=== PATIENT | female | born 1940 | race Caucasian/White ===

== ENCOUNTER 2019-05-20 04:04 | Inpatient (IN) | payer MEDICARE ==
[2019-05-20] MEDS ORDERED: KETOROLAC 30 MG/ML 1 ML VIAL IVP STA (04:28)
[2019-05-20] MEDS ORDERED: SODIUM CHLORIDE 0.9% 1,000 ML IV STA (04:29)
[2019-05-20] MEDS ORDERED: LORazepam 2 MG/ML INJ IV STA (04:29)
--- NOTE | 2019-05-20 04:39 | ED ---
General Adult HPI - General Chief complaint: Abdominal Pain Stated complaint: Side pain Time Seen by Provider: 05/20/19 04:09 Source: patient, family Mode of arrival: ambulatory Limitations: no limitations - History of Present Illness Initial comments: Dictation was produced using [employer] dictation software. please excuse any grammatical, word or spelling errors. Chief Complaint: 79-year-old female past medical history of breast cancer presents with right-sided flank pain. History of Present Illness: 79-year-old female presents today with right-sided flank pain. Patient states her symptoms are colicky in nature. She's been having symptoms for approximately 48 hours now. She states the pain is severe stabbing and intermittent to her right flank area. She denies any exacerbation with movement. No nausea or vomiting. No diarrhea. Patient denies any vaginal discharge or urinary symptoms. States she looked in her urine earlier today without any significant abnormalities. Denies any history of blood clots. No constitutional symptoms. Denies any numbness tingling or paresthesias to the extremities. The ROS documented in this emergency department record has been reviewed and confirmed by me. Those systems with pertinent positive or negative responses have been documented in the HPI. All other systems are other negative and/or noncontributory. PHYSICAL EXAM: General Impression: Alert and oriented x3, acute distress secondary to pain HEENT: Normocephalic atraumatic, extra-ocular movements intact, pupils equal and reactive to light bilaterally, mucous membranes moist. Cardiovascular: Heart regular rate and rhythm, S1&S2 audible, no murmurs, rubs or gallops Chest: Lungs clear to auscultation bilaterally, no rhonchi, no wheeze, no rales Abdomen: Bowel sounds present, abdomen soft, non-tender, non-distended, no organomegaly Musculoskeletal: Pulses present and equal in all extremities, no peripheral edema Motor: no focal deficits noted Neurological: CN II-XII grossly intact, no focal motor or sensory deficits noted Skin: Intact with no visualized rashes Psych: Normal affect and mood ED course: 79-year-old female with chief complaint of right-sided flank pain. As upon arrival shows heart rate of 1:15, blood pressure 183/85, rest of vital signs within except limits. Patient appears to be in pain at bedside. Patient is a history of kidney stones. Laboratory evaluation obtained. Leukocytosis of 11.4. Metabolic panel shows mild acidosis without anion gap. Lactic acidosis of 2.3. Patient has transaminitis with bilirubinemia 2.4. Urinalysis is positive for [address] imaging of the abdomen and pelvis shows dilated biliary tree. Radiology recommendation was to obtain MRCP or ultrasound. Patient has a history of cholecystectomy 8 years ago.. At this point is unclear what is causing patient's biliary tree dilatation. Given patient's clinical presentat ion and lab derangements we will have patient admitted to the hospital with GI consultation. There is a ultrasound of the gallbladder pending. Discussed these findings with patient was agreeable for admission.. Abdominal examination was performed patient does have positive pain in the right upper quadrant. - Related Data Allergies Allergy/AdvReac Type Severity Reaction Status Date / Time No Known Allergies Allergy Verified 05/20/19 04:14 Review of Systems ROS Statement: Those systems with pertinent positive or pertinent negative responses have been documented in the HPI. ROS Other: All systems not noted in ROS Statement are negative. Past Medical History Past Medical History: Cancer Additional Past Medical History / Comment(s): Breast cancer History of Any Multi-Drug Resistant Organisms: None Reported Past Surgical History: No Surgical Hx Reported Past Psychological History: No Psychological Hx Reported Smoking Status: Never smoker Past Alcohol Use History: Occasional Past Drug Use History: None Reported General Exam Limitations: no limitations Course Vital Signs 05/20/19 04:12 Temperature 99.6 F Pulse Rate 115 H Respiratory 18 Rate Blood Pressure 183/85 O2 Sat by Pulse 95 Oximetry Medical Decision Making - Lab Data Result diagrams: 05/20/19 04:33 05/20/19 04:33 Lab Results 05/20/19 05/20/19 05/20/19 Range/Units 04:33 04:33 04:33 WBC 11.4 H (3.8-10.6) k/uL RBC 4.38 (3.80-5.40) m/uL Hgb 12.9 (11.4-16.0) gm/dL Hct 38.9 (34.0-46.0) % MCV 88.7 (80.0-100.0) fL MCH 29.4 (25.0-35.0) pg MCHC 33.2 (31.0-37.0) g/dL RDW 12.6 (11.5-15.5) % Plt Count 241 (150-450) k/uL Neutrophils % 91 % Lymphocytes % 3 % Monocytes % 4 % Eosinophils % 1 % Basophils % 0 % Neutrophils # 10.5 H (1.3-7.7) k/uL Lymphocytes # 0.4 L (1.0-4.8) k/uL Monocytes # 0.5 (0-1.0) k/uL Eosinophils # 0.1 (0-0.7) k/uL Basophils # 0.0 (0-0.2) k/uL Sodium 138 (137-145) mmol/L Potassium 3.9 (3.5-5.1) mmol/L Chloride 108 H (98-107) mmol/L Carbon Dioxide 20 L (22-30) mmol/L Anion Gap 10 mmol/L BUN 15 (7-17) mg/dL Creatinine 0.81 (0.52-1.04) mg/dL Est GFR (CKD-EPI)AfAm 81 (>60 ml/min/1.73 sqM) Est GFR (CKD-EPI)NonAf 70 (>60 ml/min/1.73 sqM) Glucose 145 H (74-99) mg/dL Plasma Lactic Acid Shree 2.3 H* (0.7-2.0) mmol/L Calcium 8.9 (8.4-10.2) mg/dL Total Bilirubin 2.4 H (0.2-1.3) mg/dL AST 657 H (14-36) U/L ALT 359 H (9-52) U/L Alkaline Phosphatase 229 H (38-126) U/L Total Protein 6.9 (6.3-8.2) g/dL Albumin 3.9 (3.5-5.0) g/dL Lipase 106 (23-300) U/L Urine Color Urine Appearance (Clear) Urine pH (5.0-8.0) Ur Specific Carmichaels (1.001-1.035) Urine Protein (Negative) Urine Glucose (UA) (Negative) Urine Ketones (Negative) Urine Blood (Negative) Urine Nitrite (Negative) Urine Bilirubin (Negative) Urine Urobilinogen (<2.0) mg/dL Ur Leukocyte Esterase (Negative) Urine RBC (0-5) /hpf Urine WBC (0-5) /hpf Ur Squamous Epith Cells (0-4) /hpf Urine Mucus (None) /hpf 05/20/19 Range/Units 04:33 WBC (3.8-10.6) k/uL RBC (3.80-5.40) m/uL Hgb (11.4-16.0) gm/dL Hct (34.0-46.0) % MCV (80.0-100.0) fL MCH (25.0-35.0) pg MCHC (31.0-37.0) g/dL RDW (11.5-15.5) % Plt Count (150-450) k/uL Neutrophils % % Lymphocytes % % Monocytes % % Eosinophils % % Basophils % % Neutrophils # (1.3-7.7) k/uL Lymphocytes # (1.0-4.8) k/uL Monocytes # (0-1.0) k/uL Eosinophils # (0-0.7) k/uL Basophils # (0-0.2) k/uL Sodium (137-145) mmol/L Potassium (3.5-5.1) mmol/L Chloride (98-107) mmol/L Carbon Dioxide (22-30) mmol/L Anion Gap mmol/L BUN (7-17) mg/dL Creatinine (0.52-1.04) mg/dL Est GFR (CKD-EPI)AfAm (>60 ml/min/1.73 sqM) Est GFR (CKD-EPI)NonAf (>60 ml/min/1.73 sqM) Glucose (74-99) mg/dL Plasma Lactic Acid Shree (0.7-2.0) mmol/L Calcium (8.4-10.2) mg/dL Total Bilirubin (0.2-1.3) mg/dL AST (14-36) U/L ALT (9-52) U/L Alkaline Phosphatase (38-126) U/L Total Protein (6.3-8.2) g/dL Albumin (3.5-5.0) g/dL Lipase (23-300) U/L Urine Color Yellow Urine Appearance Cloudy H (Clear) Urine pH 5.5 (5.0-8.0) Ur Specific [place]els 1.019 (1.001-1.035) Urine Protein Trace H (Negative) Urine Glucose (UA) Negative (Negative) Urine Ketones Negative (Negative) Urine Blood Small H (Negative) Urine Nitrite Negative (Negative) Urine Bilirubin Negative (Negative) Urine Urobilinogen 6.0 (<2.0) mg/dL Ur Leukocyte Esterase Large H (Negative) Urine RBC 4 (0-5) /hpf Urine WBC 11 H (0-5) /hpf Ur Squamous Epith Cells 5 H (0-4) /hpf Urine Mucus Rare H (None) /hpf Disposition Clinical Impression: Abdominal pain Disposition: ADMITTED IP TO THIS HOSP Condition: Fair Referrals: Nonstaff,Physician [Primary Care Provider] - 1-2 days Decision Time: 05:31
[2019-05-20 04:43] LABS: Basophils % (A) 0 %; Eosinophils # (A) 0.1 k/uL (0-0.7); Eosinophils % (A) 1 %; HCT 38.9 % (34.0-46.0); HGB 12.9 gm/dL (11.4-16.0); Lymphocytes # (A) 0.4 k/uL (1.0-4.8); Lymphocytes % (A) 3 %; MCH 29.4 pg (25.0-35.0); MCHC 33.2 g/dL (31.0-37.0); MCV 88.7 fL (80.0-100.0); Mean Platelet Volume 6.2; Monocytes # (A) 0.5 k/uL (0-1.0); Monocytes % (A) 4 %; Neutrophils # (A) 10.5 k/uL (1.3-7.7); Neutrophils % (A) 91 %; Platelet Count 241 k/uL (150-450); RBC 4.38 m/uL (3.80-5.40); RDW 12.6 % (11.5-15.5); WBC 11.4 k/uL (3.8-10.6)
[2019-05-20 04:48] LABS: Appearance,Urine Cloudy (Clear); Bilirubin,Urine Negative (Negative); Blood,Urine Small (Negative); Color,Urine Yellow; Glucose,Urine (UA) Negative (Negative); Ketones,Urine Negative (Negative); Leukocyte Esterase,Urine Large (Negative); Mucus,Urine Rare /hpf; Nitrite,Urine Negative (Negative); PH, Urine 5.5 (5.0-8.0); Protein,Urine Trace (Negative); RBC,Urine 4 /hpf (0-5); Specific Gravity,Urine 1.019 (1.001-1.035); Squamous Epithelial Cell,Urine 5 /hpf (0-4)
[2019-05-20 05:01] LABS: Albumin 3.9 g/dL (3.5-5.0); Calcium 8.9 mg/dL (8.4-10.2); Potassium 3.9 mmol/L (3.5-5.1); Total Bilirubin 2.4 mg/dL (0.2-1.3); Total Protein 6.9 g/dL (6.3-8.2)
--- NOTE | 2019-05-20 05:16 | CT ---
EXAMINATION TYPE: CT abdomen pelvis w con DATE OF EXAM: 05/20/2019 COMPARISON: None HISTORY: pain CT DLP: 916.8 mGycm Automated exposure control for dose reduction was used. TECHNIQUE: Helical acquisition of images was performed from the lung bases through the pelvis. CONTRAST: Performed without Oral Contrast and with IV Contrast, patient injected with 80 mL of Isovue 300. FINDINGS: There is some mild atelectasis at the lung bases. There is no pericardial effusion. There is no pleur al effusion. There is dilated biliary tree. Common bile duct measures 1.4 cm. There clips from cholecystectomy. Sp dale is intact. Stomach appears intact. There is small hiatal hernia. There is no evidence of pancrea tic mass. There is no adrenal mass. Kidneys show satisfactory contrast opacification. There is no hydronephrosi s. There is no retroperitoneal adenopathy. Bladder distends smoothly. There is no inguinal hernia. Th ere are numerous small calcified uterine fibroids. There are numerous diverticula in the sigmoid colo n. There is no sign of diverticulitis. There is no free air. There is no mesenteric edema. There is n o ascites. Appendix is not definitely seen. There is no sign of thickened appendix. There is no evide nce of a bowel obstruction. There is mild thoracolumbar levoscoliosis. There is multilevel lumbar spo ndylotic changes. I see no bony destructive process. There is 25% compression deformity of L1 vertebr a there is probably old. IMPRESSION: Dilated biliary tree. Common bile duct dilated. This could relate to distal common duct s tone or stricture. No mass seen. MRCP or ultrasound exam would be helpful for further evaluation if c linically indicated. No renal stone or obstruction. Appendix not seen. No sign of appendicitis. Moderate colonic diverticulosis without evidence of diverticulitis. Fibrotic changes and atelectasis at the lung bases.
[2019-05-20] MEDS ORDERED: ONDANSETRON 4 MG/2 ML VIAL IVP PRN (05:32)
[2019-05-20] MEDS ORDERED: NALOXONE 0.4 MG/ML 1 ML VIAL IV PRN (05:32)
[2019-05-20] MEDS: SODIUM CHLORIDE 0.9% 1,000 ML IV SCH ×2 (05:49→13:18)
--- NOTE | 2019-05-20 07:51 | US ---
EXAMINATION TYPE: US gallbladder DATE OF EXAM: 05/20/2019 COMPARISON: CT CLINICAL HISTORY: dilated gall bladder. abn CT EXAM MEASUREMENTS: Liver Length: 13.9 cm Gallbladder Wall: Surgically absent cm CBD: 1.2 cm Right Kidney: 10.1 x 3.9 x 4.3 cm Pancreas: visualized portions wnl Liver: wnl Gallbladder: Surgically absent CBD: measures 1.2 cm, nothing seen to cause dilation. Right Kidney: No hydronephrosis or masses seen Limited views of the pancreas are normal. The liver is normal in size without biliary dilatation. The gallbladder is been removed. Distal common hepatic duct measures 1.2 cm. Right kidney is normal. IMPRESSION: NORMAL POST CHOLECYSTECTOMY ABDOMEN.
[2019-05-20] MEDS: PANTOPRAZOLE 40 MG/10 ML VIAL IV SCH (08:53)
--- NOTE | 2019-05-20 10:01 | CONS ---
CONSULTATION DATE OF SERVICE: 05/20/2019. REQUESTING PHYSICIAN: Dr. Hyde. REASON FOR CONSULTATION: Dilated CBD and elevated LFTs. HISTORY OF PRESENT ILLNESS: The patient is a 79 -year-old white female who was visiting her daughter for the last week, presented to the hospital complaining of right-sided flank pain that started last night. The pain continued to progressively get worse and she came to the emergency room early this morning for worsening symptoms. The pain is mostly located in the right flank area, occasionally radiates to the lower abdominal area but she denies any epigastric pain or right upper quadrant abdominal pain. She had some nausea but no emesis. She thought she had some chills but no fever. She had an episode that lasted for a week about 2 months ago, but did not seek any medical attention. She is status post gallbladder surgery many years ago. She came to the emergency room and in the ER was noted to have elevated LFTs and bilirubin up to 2.4 with ALT and AST in the range of 657 and 359 respectively. She did have a CT of the abdomen and pelvis done that showed dilated biliary tree with common bile duct dilated. No obvious stones noted. History of prior cholecystectomy. She also had an ultrasound of the right upper quadrant done this morning that was unremarkable other than the CBD that was 1.2 cm in size. The patient this morning is feeling better. She still has some right flank pain. PAST MEDICAL HISTORY: Significant for a breast cancer that was diagnosed about a year ago stage I, status post lumpectomy. PAST SURGICAL HISTORY: Cholecystectomy, lumpectomy. MEDICATIONS: At home medications: . ALLERGIES: No known drug allergies. SOCIAL HISTORY: No smoking. No alcohol use. FAMILY HISTORY: Unremarkable. REVIEW OF SYSTEMS: CARDIOPULMONARY: She denies any chest pain. No shortness of breath. GENITOURINARY: No dysuria or hematuria. MUSCULOSKELETAL: Unremarkable. SKIN unremarkable. ENDOCRINE: Unremarkable. PSYCHIATRIC: Unremarkable. NEUROLOGY unremarkable. ENT/vision unremarkable. CONSTITUTIONAL: No recent weight loss. No fever, chills, night sweats. ENDOCRINE unremarkable. HEMATOLOGY/ONCOLOGY: History of breast cancer diagnosed a year ago. FAMILY HISTORY: Unremarkable. PHYSICAL EXAMINATION: She appears comfortable. No apparent distress. VITAL SIGNS: Stable. Blood pressure is 159/76, pulse is 114, temperature 98. HEENT examination unremarkable. Conjunctivae pink. Sclerae anicteric. Oral cavity no lesions. NECK: No JVD or lymph node enlargement. CHEST: Clear to auscultation. CARDIAC: Heart regular rate and rhythm. ABDOMEN: Soft. There was very minimal tenderness in the epigastric area. Bowel sounds are positive. No organomegaly. EXTREMITIES: No pedal edema. SKIN: No rashes. NEUROLOGIC: Alert and oriented x3. No focal deficits. LABS: WBC 11.4, hemoglobin 12.9, platelets are normal. AST 657, ALT 359, alkaline phosphatase 229, bilirubin is 2.4. Lactic acid was 2.3. IMPRESSION: This is a lady who presents to the hospital with severe right flank pain that started late last night that progressed over the night until this morning and came to the emergency room, was noted to have elevated serum transaminases and bilirubin up to 2.4. She is status post gallbladder surgery approximately 20 years ago. She did have a CT as well as ultrasound of abdomen that showed evidence of dilated CBD, but no obvious stones identified. The clinical picture could be related to a common bile duct stone, but given the presentation of right flank pain, other possibilities need to be considered. RECOMMENDATIONS: 1. We will obtain hepatitis viral profile. 2. MRCP to evaluate this further. 3. Repeat labs in the morning. 4. Based on MRCP results, we will plan accordingly. 5. At this time we will follow the patient closely during her hospital stay. Thank you for this consultation. ESTELA / DULCE MARIA: [id number] /
[2019-05-20] MEDS: LISINOPRIL 20 MG TAB PO SCH (11:05)
--- NOTE | 2019-05-20 11:31 | P.CRDCN ---
History of Present Illness Consult date: 05/20/19 Chief complaint: Abdominal discomfort History of present illness: This is a 79-year-old female patient with a past medical history sign ificant for hypertension as well as history of breast cancer who is currently visiting her daughter, presented to the emergency room complaining of abdominal discomfort. We requested to see the patient for further cardiac evaluation of abnormal troponin. The patient was in her usual state of health until yesterday when she started experiencing discomfort in the abdomen and mainly on the right side in the flank area without any radiation. No associated symptoms of fever or chills or nausea or vomiting. No bleeding. Subsequently the patient was found to have an abnormal liver function tests. Also she was found to have elevated alkaline phosphatase. The computed tomography scan of the abdomen and pelvis did reveal dilated. 3 was dilated common bile duct. The patient subsequently was seen by the GI service and the plan is to proceed with an ERCP. We involved in the care of the patient because of abnormal troponin. The patient denies having any symptoms of chest pain or chest discomfort or shortness of breath and no history of coronary artery disease or congestive heart failure or cardiac arrhythmia. As a matter of fact she never seen by crepe sole scourer in the past. No EKG in the chart at this point and the patient is in process of having EKG. Please note that she was hypertensive and tachycardic probably because of the pain when she presented to the hospital which could be responsible for the abnormal troponin. Past Medical History Past Medical History: Cancer, Eye Disorder, Hypertension Additional Past Medical History / Comment(s): Breast cancer left History of Any Multi-Drug Resistant Organisms: None Reported Past Surgical History: Breast Surgery, Cholecystectomy Additional Past Surgical History / Comment(s): Left breast lumpectomy with lymphnodes, cataract lens implants Past Anesthesia/Blood Transfusion Reactions: No Reported Reaction Past Psychological History: No Psychological Hx Reported Additional Psychological History / Comment(s): Lives alone in [place]. Here visiting dtr (Catalino) and sister (Toro Ro). Retired. Drives. Independent with ADL's, no assistive devices for ambulation. Smoking Status: Never smoker Past Alcohol Use History: Occasional Past Drug Use History: None Reported - Past Family History Mother Additional Family Medical History / Comment(s): Diverticulosis with colostomy Medications and Allergies Home Medications Medication Instructions Recorded Confirmed Type Exemestane [Aromasin] 25 mg PO HS 05/20/19 05/20/19 History Lisinopril [Prinivil] 20 mg PO DAILY 05/20/19 05/20/19 History Allergies Allergy/AdvReac Type Severity Reaction Status Date / Time No Known Allergies Allergy Verified 05/20/19 08:15 Physical Exam Vitals: Vital Signs Temp Pulse Pulse Resp BP BP Pulse Ox 05/20/19 06:49 98.8 F 114 H 20 159/75 95 05/20/19 05:42 98 F 106 H 18 164/80 98 05/20/19 04:12 99.6 F 115 H 18 183/85 95 Intake and Output 05/19/19 05/20/19 05/20/19 22:59 06:59 14:59 Other: # Voids 1 Weight 75.75 kg - Constitutional General appearance: no acute distress - Respiratory Respiratory: bilateral: CTA - Cardiovascular Rhythm: regular Heart sounds: normal: S1, S2 Results 05/20/19 04:33 05/20/19 04:33 Cardiac Enzymes 05/20/19 05/20/19 05/20/19 Range/Units 04:33 06:47 09:08 AST 657 H (14-36) U/L Troponin I 0.027 0.042 H* (0.000-0.034) ng/mL CBC 05/20/19 Range/Units 04:33 WBC 11.4 H (3.8-10.6) k/uL RBC 4.38 (3.80-5.40) m/uL Hgb 12.9 (11.4-16.0) gm/dL Hct 38.9 (34.0-46.0) % Plt Count 241 (150-450) k/uL Comprehensive Metabolic Panel 05/20/19 Range/Units 04:33 Sodium 138 (137-145) mmol/L Potassium 3.9 (3.5-5.1) mmol/L Chloride 108 H (98-107) mmol/L Carbon Dioxide 20 L (22-30) mmol/L BUN 15 (7-17) mg/dL Creatinine 0.81 (0.52-1.04) mg/dL Glucose 145 H (74-99) mg/dL Calcium 8.9 (8.4-10.2) mg/dL AST 657 H (14-36) U/L ALT 359 H (9-52) U/L Alkaline Phosphatase 229 H (38-126) U/L Total Protein 6.9 (6.3-8.2) g/dL Albumin 3.9 (3.5-5.0) g/dL Current Medications Generic Name Dose Route Start Last Admin Trade Name Freq PRN Reason Stop Dose Admin Heparin Sodium (Porcine) 5,000 unit 05/20/19 21:00 Heparin SQ Q12HR NEERU Sodium Chloride 1,000 mls @ 110 mls/hr 05/20/19 05:45 05/20/19 05:49 Saline 0.9% IV 110 mls/hr .Q9H6M NEERU Administration Ceftriaxone Sodium 1 gm/ 50 mls @ 100 mls/hr 05/20/19 10:45 05/20/19 11:05 Sodium Chloride IVPB 100 mls/hr Q24HR NEERU Administration Lisinopril 20 mg 05/20/19 10:45 05/20/19 11:05 Zestril PO 20 mg DAILY NEERU Administration Lorazepam 1 mg 05/20/19 13:15 Ativan IV 05/20/19 13:16 ONCE ONE Metoprolol Tartrate 12.5 mg 05/20/19 21:00 Lopressor PO BID NEERU Naloxone HCl 0.2 mg 05/20/19 05:32 Narcan IV Q2M PRN Opioid Reversal Ondansetron HCl 4 mg 05/20/19 05:32 Zofran IVP Q8HR PRN Nausea And Vomiting Pantoprazole Sodium 40 mg 05/20/19 09:00 05/20/19 08:53 Protonix IV 40 mg DAILY NEERU Administration Intake and Output 05/19/19 05/20/19 05/20/19 22:59 06:59 14:59 Other: # Voids 1 Weight 75.75 kg 05/20/19 04:33 05/20/19 04:33 Assessment and Plan Assessment: Assessment #1 biliary obstruction. The etiology is unknown. GI on the case. #2 elevated liver function test and elevated. Obesity secondary to above #3 abdominal discomfort secondary to above #4 hypertension and tachycardia #5 mildly abnormal troponin Plan #1 follow-up with the serial cardiac enzymes. I will obtain one more set of tr oponin #2 obtain 12 please EKG #3 add small dose of metoprolol to the current medical regimen to achieve a better blood pressure and heart rate #4 obtain an echocardiogram was Doppler #5 follow-up with the patient Thank you for allowing us participate in her care
[2019-05-20] MEDS ORDERED: METOPROLOL TARTRATE 12.5 MG TAB PO SCH (12:30)
[2019-05-20] MEDS ORDERED: ACETAMINOPHEN SUPPOSITORY 650 MG SUPP RECTAL STA (13:14)
[2019-05-20] MEDS ORDERED: LORazepam 2 MG/ML INJ IV ONE (13:15)
--- NOTE | 2019-05-20 14:11 | ECHOF ---
Referral Reason:nstemi MEASUREMENTS -------- HEIGHT: 167.6 cm WEIGHT: 75.7 kg BP: 159/75 RVIDd: 4.2 cm (< 3.3) IVSd: 1.7 cm (0.6 - 1.1) LVIDd: 4.2 cm (3.9 - 5.3) LVPWd: 1.5 cm (0.6 - 1.1) IVSs: 1.8 cm LVIDs: 3.5 cm LVPWs: 1.8 cm LAESV Index (A-L): 31.84 ml/m Ao Diam: 2.7 cm (2.0 - 3.7) AV Cusp: 1.5 cm (1.5 - 2.6) AV maxP.82 mmHg AV meanP.40 mmHg RAP: 5.00 mmHg RVSP: 32.29 mmHg FINDINGS -------- Resting tachycardia (HR>100bpm). This was a technically adequate study. This was a technically difficult study with suboptimal views . Pt. not compliant. The left ventricular size is normal. There is moderate concentric left ventricular hypertrophy. I t is difficult to coment on the EF. The endocardium was not well seen. The right ventricle is severely enlarged. LA is severely dilated >40 ml/m2 The right atrial size is normal. Interatrial and interventricular septum intact. The aortic valve was not well visualized. There is no evidence of aortic regurgitation. There is no evidence of aortic stenosis. The mitral valve was not well visualized. Mild mitral regurgitation is present. The tricuspid valve was not well visualized. Mild tricuspid regurgitation present. There is no ev idence of pulmonary hypertension. The right ventricular systolic pressure, as measured by Doppler, is 32.29mmHg. The pulmonic valve was not well visualized. The aortic root size is normal. IVC Not well visulized. There is no pericardial effusion. CONCLUSIONS -------- 1. Resting tachycardia (HR>100bpm). 2. This was a technically adequate study. 3. This was a technically difficult study with suboptimal views. 4. Pt. not compliant. 5. The left ventricular size is normal. 6. There is moderate concentric left ventricular hypertrophy. 7. It is difficult to coment on the EF. The endocardium was not well seen. 8. The right ventricle is severely enlarged. 9. LA is severely dilated >40 ml/m2 10. The right atrial size is normal. 11. Interatrial and interventricular septum intact. 12. The aortic valve was not well visualized. 13. There is no evidence of aortic regurgitation. 14. There is no evidence of aortic stenosis. 15. The mitral valve was not well visualized. 16. Mild mitral regurgitation is present. 17. The tricuspid valve was not well visualized. 18. Mild tricuspid regurgitation present. 19. There is no evidence of pulmonary hypertension. 20. The right ventricular systolic pressure, as measured by Doppler, is 32.29mmHg. 21. The pulmonic valve was not well visualized. 22. The aortic root size is normal. 23. IVC Not well visulized. 24. There is no pericardial effusion. TWIST MAKER: Sona Cantrell RDCS
[2019-05-20] MEDS ORDERED: SODIUM CHLORIDE 0.9% 1,000 ML IV ONE (14:40)
--- NOTE | 2019-05-20 14:43 | MR ---
MRI ABDOMEN WITHOUT CONTRAST, MRCP CLINICAL INDICATION: Elevated liver function enzymes, dilated common bile duct, concerning for commo n bile duct stone. TECHNIQUE: Multi planar, multi sequence imaging was performed. 3-D mbct-up-[id number] imaging was utili zed in order to study the biliary system. Maximum intensity projection images were reconstructed fro m the original data. No Gadolinium given. COMPARISON: Gallbladder ultrasound and CT abdomen/pelvis 05/20/2019. FINDINGS: The study is limited by patient motion. MRCP: Mild dilatation of the intrahepatic bile ducts. The gallbladder is not definitively visualized, likely due to surgical absence. The hepatic and common bile duct are dilated measuring approximately 1.2 and 1.5 cm, respectively. There is fluid in the da hepatis. Small foci of low signal are depe ndently layering within the hepatic and common bile duct. Signal void distally noted on axial T2-weig hted sequences may be due to flow related artifact. The hgzf-yv-[id number] imaging and 3-D reconstruction s are essentially nondiagnostic due to motion. Pancreatic duct is prominent. Abdomen: No hepatosplenomegaly. Limited adrenal evaluation due to motion. Nonspecific perinephric flu id, minimal. 4 mm high T2 signal intensity lesion in the hepatic tail parenchyma. Partially visualize d colonic diverticula. Degenerative changes of the lumbar spine present on chief safety officer imaging with mild co mpression deformity of L1, age indeterminant. IMPRESSIONS: Significantly motion limited study. Intrahepatic and extrahepatic biliary ductal dilatation with smal l foci of low signal in the hepatic and common bile ducts dependently which may represent biliary pennie t stones, sludge, or artifact (partial volume averaging). Evaluation for the presence of structure is limited due to motion.
[2019-05-20] MEDS: METOPROLOL TARTRATE 50 MG TAB PO SCH (20:39)
[2019-05-20] MEDS: HEPARIN SODIUM,PORCINE 5,000 UNIT/ML 1 ML VIAL SQ SCH (20:39)
[2019-05-20] MEDS ORDERED: metroNIDAZOLE-NS PMX 500 MG in SALINE 1 100ML.BAG IVPB SCH (22:18)
--- NOTE | 2019-05-20 22:40 | P.HPIM ---
History of Present Illness H&P Date: 05/20/19 Chief Complaint: Right flank pain Patient is 79-year-old female with a known history of hypertension, history of left breast cancer status post surgery and currently on Aromasin and previous history of cholecystectomy came to ER with complaints of right flank pain started since last night. Pain is mainly in the right flank no radiation. No aggravating or relieving factors. Associated with some nausea. No episodes of vomiting. Patient did have chills at home. No fever noted when she came to the hospital. Otherwise denied any complains of chest pain or shortness of breath. Patient is visiting her daughter and has been in [place] for the past 1 week. Patient was found to have elevated liver enzymes and bilirubin level II.4 on admission. Patient was tachycardic. CT of the abdomen pelvis showed dilated biliary tree. Common bile dilated. This could relate to distal common bile stone or stricture. MRCP WAS RECOMMENDED. ULTRASOUND OF THE ABDOMEN SHOWED normal post cholecystectomy abdomen. EKG showed sinus tachycardia on admission. Patient was also found to have elevated troponin level 0.027 and 0.042. Denied any prior history of coronary artery disease. Lactic acid level was 2.4. Cardiology and gastroenterology was consulted. Patient was tachycardic and systolic blood pressures went up to 203 MM Hg today afternoon. Review of Systems Constitutional: Patient denies any fever or chills . No generalized weakness or weight loss. Abdomen: Patient denied nausea vomiting . Patient does have right flank pain and denied upper abdominal pain. Cardiovascular: Patient denies any chest pain or short of breath no palpitations. Respiratory: patient denied any cough is from production. No shortness of br eath Neurologic: Patient denied any numbness or tingling headache. Musculoskeletal: Patient denies any complaints of joint swelling or deformity. Skin: Negative Psychiatric: Negative Endocrine: No heat or cold intolerance. No recent weight gain. Genitourinary: No dysuria or hematuria. All other 14 point ROS negative except the above Past Medical History Past Medical History: Cancer, Eye Disorder, Hypertension Additional Past Medical History / Comment(s): Breast cancer left History of Any Multi-Drug Resistant Organisms: None Reported Past Surgical History: Breast Surgery, Cholecystectomy Additional Past Surgical History / Comment(s): Left breast lumpectomy with lymphnodes, cataract lens implants Past Anesthesia/Blood Transfusion Reactions: No Reported Reaction Past Psychological History: No Psychological Hx Reported Additional Psychological History / Comment(s): Lives alone in [place]. Here visiting dtr (Catalino) and sister (Toro Ro). Retired. Drives. Independent with ADL's, no assistive devices for ambulation. Smoking Status: Never smoker Past Alcohol Use History: Occasional Past Drug Use History: None Reported - Past Family History Mother Additional Family Medical History / Comment(s): Diverticulosis with colostomy Medications and Allergies Home Medications Medication Instructions Recorded Confirmed Type Exemestane [Aromasin] 25 mg PO HS 05/20/19 05/20/19 History Lisinopril [Prinivil] 20 mg PO DAILY 05/20/19 05/20/19 History Allergies Allergy/AdvReac Type Severity Reaction Status Date / Time No Known Allergies Allergy Verified 05/20/19 08:15 Physical Exam Vitals: Vital Signs Temp Pulse Pulse Resp BP BP Pulse Ox 05/20/19 06:49 98.8 F 114 H 20 159/75 95 05/20/19 05:42 98 F 106 H 18 164/80 98 05/20/19 04:12 99.6 F 115 H 18 183/85 95 Intake and Output 05/19/19 05/20/19 05/20/19 22:59 06:59 14:59 Other: Weight 75.75 kg PHYSICAL EXAMINATION: Patient is lying in the bed comfortably, no acute distress, awake alert and oriented.. HEENT: Normocephalic. Neck is supple. Pupils reactive. Nostrils clear. Oral cavity is moist. Ears reveal no drainage. Neck reveals no JVD, carotid bruits, or thyromegaly. CHEST EXAMINATION: Trachea is central. Symmetrical expansion. Bibasilar diminished air entry. Lung rios clear to auscultation and percussion. CARDIAC: Normal S1, S2 with no gallops. No murmurs ABDOMEN: Soft. Right flank tenderness. Nontender right upper quadrant. No guarding no rigidity. Bowel sounds normal. No organomegaly. No abdominal bruits. Extremities: reveal no edema. No clubbing or cyanosis Neurologically awake, alert, oriented x3 with well-coordinated movements. No focal deficits noted Skin: No rash or skin lesions. Psychiatric: Coperative. Nonsuicidal Musculoskeletal: No joint swelling or deformity. Normal range of motion. Results CBC & Chem 7: 05/20/19 04:33 05/20/19 04:33 Labs: Abnormal Lab Results - Last 24 Hours (Table) 05/20/19 05/20/19 05/20/19 Range/Units 04:33 04:33 04:33 WBC 11.4 H (3.8-10.6) k/uL Neutrophils # 10.5 H (1.3-7.7) k/uL Lymphocytes # 0.4 L (1.0-4.8) k/uL Chloride 108 H (98-107) mmol/L Carbon Dioxide 20 L (22-30) mmol/L Glucose 145 H (74-99) mg/dL Plasma Lactic Acid Shree 2.3 H* (0.7-2.0) mmol/L Total Bilirubin 2.4 H (0.2-1.3) mg/dL AST 657 H (14-36) U/L ALT 359 H (9-52) U/L Alkaline Phosphatase 229 H (38-126) U/L Troponin I (0.000-0.034) ng/mL Urine Appearance (Clear) Urine Protein (Negative) Urine Blood (Negative) Ur Leukocyte Esterase (Negative) Urine WBC (0-5) /hpf Ur Squamous Epith Cells (0-4) /hpf Urine Mucus (None) /hpf 05/20/19 05/20/19 05/20/19 Range/Units 04:33 09:08 09:08 WBC (3.8-10.6) k/uL Neutrophils # (1.3-7.7) k/uL Lymphocytes # (1.0-4.8) k/uL Chloride (98-107) mmol/L Carbon Dioxide (22-30) mmol/L Glucose (74-99) mg/dL Plasma Lactic Acid Shree 2.4 H* (0.7-2.0) mmol/L Total Bilirubin (0.2-1.3) mg/dL AST (14-36) U/L ALT (9-52) U/L Alkaline Phosphatase (38-126) U/L Troponin I 0.042 H* (0.000-0.034) ng/mL Urine Appearance Cloudy H (Clear) Urine Protein Trace H (Negative) Urine Blood Small H (Negative) Ur Leukocyte Esterase Large H (Negative) Urine WBC 11 H (0-5) /hpf Ur Squamous Epith Cells 5 H (0-4) /hpf Urine Mucus Rare H (None) /hpf Thrombosis Risk Factor Assmnt - DVT/VTE Prophylaxis DVT/VTE Prophylaxis: Pharmacologic Prophylaxis ordered - Choose All That Apply Each Risk Factor Represents 3 Points: Age 75 years or older Thrombosis Risk Factor Assessment Total Risk Factor Score: 3 Thrombosis Risk Factor Assessment Level: Moderate Risk Assessment and Plan Assessment: Right flank pain. Patient was admitted to hospital right flank pain along with elevated liver enzymes and slightly elevated bilirubin level with biliary ductal dilatation in the CT. choledocholithiasis with possible cholangitis cannot be excluded. Sepsis secondary to above Lactic acidosis Possible UTI with abnormal urine sample. Follow-up urine culture report Elevated troponin level. Likely due to demand mismatch vs NSTEMI Elevated liver enzymes History of breast cancer status post left lumpectomy with lymph nodes. Currently on Aromasin. Hypertensive urgency History of cholecystectomy DVT prophylaxis with heparin subcu. Plan: Patient will be started on antibiotics in the form of ceftriaxone and Flagyl. Continue with IV hydration and follow-up lactic acid level. Follow-up urine culture and blood culture reports. Continue pain management. MRCP was ordered. Patient was seen by gastroenterology. Cardiology was consulted due to elevated troponin level. No prior history of CAD. Follow up closely and further recommendations based on the clinical course. Prognosis is guarded this time. Time with Patient: Greater than 30
[2019-05-20] MEDS: metroNIDAZOLE-NS PMX 500 MG in SALINE 1 100ML.BAG IVPB SCH (22:51)
[2019-05-20 23:05] LABS: INR 1.6 (<1.2); Partial Thromboplastin Time 29.7 sec (22.0-30.0); Prothrombin Time 16.2 sec (9.0-12.0)
[2019-05-21 06:17] LABS: Basophils # (A) 0.1 k/uL (0-0.2); Basophils % (A) 0 %; Eosinophils # (A) 0.1 k/uL (0-0.7); Eosinophils % (A) 1 %; HCT 34.9 % (34.0-46.0); HGB 10.4 gm/dL (11.4-16.0); Lymphocytes % (A) 7 %; MCH 27.8 pg (25.0-35.0); MCHC 29.9 g/dL (31.0-37.0); Mean Platelet Volume 7.5; Monocytes # (A) 0.8 k/uL (0-1.0); Monocytes % (A) 5 %; Neutrophils # (A) 12.8 k/uL (1.3-7.7); Neutrophils % (A) 86 %; Platelet Count 196 k/uL (150-450); RBC 3.75 m/uL (3.80-5.40); RDW 13.3 % (11.5-15.5); WBC 14.8 k/uL (3.8-10.6)
[2019-05-21] MEDS: metroNIDAZOLE-NS PMX 500 MG in SALINE 1 100ML.BAG IVPB SCH ×3 (06:21→21:08)
[2019-05-21] MEDS: SODIUM CHLORIDE 0.9% 1,000 ML IV SCH ×3 (06:22→21:09)
[2019-05-21 06:33] LABS: Albumin 2.7 g/dL (3.5-5.0); Calcium 7.7 mg/dL (8.4-10.2); Potassium 3.4 mmol/L (3.5-5.1); Total Bilirubin 4.1 mg/dL (0.2-1.3); Total Protein 5.4 g/dL (6.3-8.2)
--- NOTE | 2019-05-21 06:41 | XR ---
EXAMINATION TYPE: XR chest 1V DATE OF EXAM: 05/21/2019 HISTORY: fever. REFERENCE: None. FINDINGS: The heart is enlarged. There is vascular congestion and subtle interstitial change. I could not exclude tiny bilateral effusions. IMPRESSION: SUBTLE CHANGES OF CONGESTIVE HEART FAILURE
[2019-05-21] MEDS: HEPARIN SODIUM,PORCINE 5,000 UNIT/ML 1 ML VIAL SQ SCH ×2 (08:13→21:08)
[2019-05-21] MEDS: LISINOPRIL 20 MG TAB PO SCH (08:13)
[2019-05-21] MEDS: PANTOPRAZOLE 40 MG/10 ML VIAL IV SCH (08:13)
[2019-05-21] MEDS: METOPROLOL TARTRATE 50 MG TAB PO SCH ×2 (08:13→21:08)
--- NOTE | 2019-05-21 10:19 | P.PN ---
Subjective Progress Note Date: 05/21/19 Principal diagnosis: Non-ST deviation myocardial infarction This is a 79-year-old female patient with a past medical history significant for hypertension as well as history of breast cancer who is currently visiting her daughter, presented to the emergency room complaining of abdominal discomfort. We requested to see the patient for further cardiac evaluation of abnormal troponin. The patient was in her usual state of health until yesterday when she started experiencing discomfort in the abdomen and mainly on the right side in the flank area without any radiation. No associated symptoms of fever or chills or nausea or vomiting. No bleeding. Subsequently the patient was found to have an abnormal liver function tests. Also she was found to have elevated alkaline phosphatase. The computed tomography scan of the abdomen and pelvis did reveal dilated. 3 was dilated common bile duct. The patient subsequently was seen by the GI service and the plan is to proceed with an ERCP. We involved in the care of the patient because of abnormal troponin. Initial troponin came in to be below 1 but the subsequent troponin came in to be above 1. The EKG revealed T wave inversion in the chest leads. At that point the patient was transferred from [facility] to the telemetry floor at [address] [place] [address]. She underwent an echocardiogram which was technically very difficult and I could not comment on the ejection fraction. On follow-up with the patient today, 05/21/2019, the patient stated that she is not having any chest pain or chest discomfort but she feels tired. I did start the patient on metoprolol. I am going to check with the GI service if we can start the patient on aspirin as well as heparin IV. The patient do need to have a heart catheterization to rule out severe coronary artery disease behind her abnormal troponin. Objective - Vital Signs Vital signs: Vital Signs Temp 99.0 F 05/21/19 08:00 Pulse 85 05/21/19 08:00 Resp 16 05/21/19 08:00 BP 138/76 05/21/19 08:00 Pulse Ox 93 L 05/21/19 08:00 Intake & Output 05/20/19 05/21/19 05/21/19 18:59 06:59 18:59 Intake Total 0 Balance 0 Weight 79.8 kg Intake: Oral 0 Other: Voiding Method Toilet # Voids 1 1 # Bowel Movements 2 - Constitutional General appearance: Present: no acute distress - Respiratory Respiratory: bilateral: CTA - Cardiovascular Rhythm: regular Heart sounds: normal: S1, S2 - Labs CBC & Chem 7: 05/21/19 06:01 05/21/19 06:01 Labs: Abnormal Lab Results - Last 24 Hours (Table) 05/20/19 05/20/19 05/20/19 Range/Units 09:08 13:24 15:57 WBC (3.8-10.6) k/uL RBC (3.80-5.40) m/uL Hgb (11.4-16.0) gm/dL MCHC (31.0-37.0) g/dL Neutrophils # (1.3-7.7) k/uL PT (9.0-12.0) sec INR (<1.2) Potassium (3.5-5.1) mmol/L Chloride (98-107) mmol/L Carbon Dioxide (22-30) mmol/L BUN (7-17) mg/dL Plasma Lactic Acid Shree 2.9 H* (0.7-2.0) mmol/L Calcium (8.4-10.2) mg/dL Total Bilirubin (0.2-1.3) mg/dL AST (14-36) U/L ALT (9-52) U/L Alkaline Phosphatase (38-126) U/L Troponin I 0.042 H* 0.892 H* (0.000-0.034) ng/mL Total Protein (6.3-8.2) g/dL Albumin (3.5-5.0) g/dL 05/20/19 05/20/19 05/21/19 Range/Units 20:32 22:25 06:01 WBC 14.8 H (3.8-10.6) k/uL RBC 3.75 L (3.80-5.40) m/uL Hgb 10.4 L (11.4-16.0) gm/dL MCHC 29.9 L (31.0-37.0) g/dL Neutrophils # 12.8 H (1.3-7.7) k/uL PT 16.2 H (9.0-12.0) sec INR 1.6 H (<1.2) Potassium (3.5-5.1) mmol/L Chloride (98-107) mmol/L Carbon Dioxide (22-30) mmol/L BUN (7-17) mg/dL Plasma Lactic Acid Shree (0.7-2.0) mmol/L Calcium (8.4-10.2) mg/dL Total Bilirubin (0.2-1.3) mg/dL AST (14-36) U/L ALT (9-52) U/L Alkaline Phosphatase (38-126) U/L Troponin I 1.050 H* (0.000-0.034) ng/mL Total Protein (6.3-8.2) g/dL Albumin (3.5-5.0) g/dL 05/21/19 Range/Units 06:01 WBC (3.8-10.6) k/uL RBC (3.80-5.40) m/uL Hgb (11.4-16.0) gm/dL MCHC (31.0-37.0) g/dL Neutrophils # (1.3-7.7) k/uL PT (9.0-12.0) sec INR (<1.2) Potassium 3.4 L (3.5-5.1) mmol/L Chloride 113 H (98-107) mmol/L Carbon Dioxide 18 L (22-30) mmol/L BUN 19 H (7-17) mg/dL Plasma Lactic Acid Shree (0.7-2.0) mmol/L Calcium 7.7 L (8.4-10.2) mg/dL Total Bilirubin 4.1 H (0.2-1.3) mg/dL AST 131 H (14-36) U/L ALT 181 H (9-52) U/L Alkaline Phosphatase 141 H (38-126) U/L Troponin I (0.000-0.034) ng/mL Total Protein 5.4 L (6.3-8.2) g/dL Albumin 2.7 L (3.5-5.0) g/dL Microbiology - Last 24 Hours (Table) 05/20/19 04:33 Urine Culture - Preliminary Urine,Clean Catch Assessment and Plan Assessment: Assessment #1 biliary obstruction. The etiology is unknown. GI on the case. #2 elevated liver function test and elevated. Obesity secondary to above #3 abdominal discomfort secondary to above #4 hypertension and tachycardia #5 non-ST elevation NC Plan #1 start the patient on aspirin as well as heparin if it's okay from the GI standpoint overview #2 the patient need to undergo a coronary angiogram #3 continue metoprolol #4 follow-up with the patient
[2019-05-21] MEDS ORDERED: Potassium Replacement Protocol 1 EACH MISC MISCELLANE PRN (10:47)
--- NOTE | 2019-05-21 14:49 | PN ---
PROGRESS NOTE DATE OF SERVICE: 05/21/2019 REQUESTING PHYSICIAN: Dr. Rivera. The patient is a 79-year-old pleasant white female who presents to the hospital with severe right flank pain radiating to the right upper quadrant area for the last 2 days duration. At the time of admission to the hospital was noted to have elevated LFTs with bilirubin of 2.1 and ALT and AST in the range of 657 and 359 respectively. Initial CAT scan and ultrasound showed dilated common bile duct. She subsequently underwent an ERCP yesterday which revealed dilated biliary system with intra and extrahepatic biliary ductal dilation with small foci of low signal in the hepatic and common bile duct which may represent biliary duct stones. In the meantime, patient is doing much better. Her symptoms are resolved. She did have troponins that were noted to be elevated and hence Cardiology was consulted yesterday. Dr. Mcnamara evaluated the patient and the plan is to proceed with cardiac catheterization today or tomorrow. The patient is asymptomatic and chest pain- free. PHYSICAL EXAMINATION: She appears comfortable, no apparent distress. Vital signs are stable. Blood pressure is 138/76, pulse rate 85, temperature 99. HEENT examination unremarkable. Conjunctivae pink, sclerae anicteric. Oral cavity, no lesions. NECK: No JVD or lymph node enlargement. CHEST: Clear to auscultation. HEART: Regular rate and rhythm. ABDOMEN: Soft. It was nontender and nondistended. Bowel sounds are positive. No organomegaly. EXTREMITIES: No pedal edema. SKIN: No rashes. NEUROLOGIC: Alert and oriented x3. No focal deficits. LABS: From today, T bilirubin increased to 4.1, AST is 131, ALT is 181, alkaline phosphatase 141. WBC 14.8, hemoglobin 10.4, and platelets are 196. The INR is 1.6. IMPRESSION: 1. Right flank pain, right upper quadrant abdominal pain associated with elevated LFTs and MRCP showed evidence of intra and extrahepatic biliary ductal dilation with 2 small foci in the distal common bile duct suspicious for common bile duct stones. The patient also has leukocytosis for which she was started on broad-spectrum antibiotics for possible ascending cholangitis. The patient clinically has significant improvement, however, bilirubin continues to get worse. 2. Elevated troponin level. Cardiology following the patient closely. The plan is to proceed with cardiac catheterization possibly tomorrow. RECOMMENDATIONS: 1. Continue with broad-spectrum antibiotics. 2. Clear liquid diet. 3. We will proceed with an ERCP tomorrow. I discussed with the patient risks, benefits and complications of the procedure. 4. I had a lengthy discussion with Dr. Mcnamara from Cardiology. At this time the plan is to proceed with an ERCP tomorrow and then . Anders plans on proceeding with cardiac catheterization to evaluate for coronary artery disease. 5. At this time, recommended to hold off on anticoagulation because of underlying mild coagulopathy. Thank you for this consultation. MMODL / IJN: [id number] /
--- NOTE | 2019-05-21 22:44 | P.PN ---
Subjective Progress Note Date: 05/21/19 Principal diagnosis: Biliary ductal dilation and hyperbilirubinemia Patient is 79-year-old female with a known history of hypertension, history of left breast cancer status post surgery and currently on Aromasin and previous history of cholecystectomy came to ER with complaints of right flank pain started since last night. Pain is mainly in the right flank no radiation. No a ggravating or relieving factors. Associated with some nausea. No episodes of vomiting. Patient did have chills at home. No fever noted when she came to the hospital. Otherwise denied any complains of chest pain or shortness of breath. Patient is visiting her daughter and has been in [place] for the past 1 week. Patient was found to have elevated liver enzymes and bilirubin level II.4 on admission. Patient was tachycardic. CT of the abdomen pelvis showed dilated biliary tree. Common bile dilated. This could relate to distal common bile stone or stricture. MRCP WAS RECOMMENDED. ULTRASOUND OF THE ABDOMEN SHOWED normal post cholecystectomy abdomen. EKG showed sinus tachycardia on admission. Patient was also found to have elevated troponin level 0.027 and 0.042. Denied any prior history of coronary artery disease. Lactic acid level was 2.4. Cardiology and gastroenterology was consulted. Patient was tachycardic and systolic blood pressures went up to 203 MM Hg today afternoon. 05/21/2019 Patient is currently lying in the bed comfortably. Denied any complaints of right flank pain today., Except one episode lasting about a minute this morning. Otherwise patient's bilirubin went up to 4. Levaquin is trending down. WBC 14.8. Patient was started on antibiotics in the form of ceftriaxone and Flagyl for possible cholangitis. Patient was febrile last night. Currently patient is afebrile. No complains of dysuria or hematuria. Troponin went up to 1.050. Cardiology recommends cardiac catheterization. Patient denied any complaints of chest pain or shortness of breath now. Gastroenterology is planning for ERCP likely tomorrow. Follow-up CBC and CMP and PT/INR tomorrow. Discussed with her daughter at bedside. Current medications reviewed. Active Medications Heparin Sodium (Porcine) (Heparin) 5,000 unit SQ Q12HR [facility]ERU Last Admin: 05/21/19 21:08 Dose: 5,000 unit Documented by: Sodium Chloride (Saline 0.9%) 1,000 mls @ 100 mls/hr IV .Q10H NEERU Last Admin: 05/21/19 21:09 Dose: 100 mls/hr Documented by: Ceftriaxone Sodium 1 gm/ (Sodium Chloride) 50 mls @ 100 mls/hr IVPB Q24HR [facility] Last Admin: 05/21/19 08:15 Dose: 100 mls/hr Documented by: Metronidazole 500 mg/ IV (Solution) 100 mls @ 100 mls/hr IVPB Q8H [facility] Last Admin: 05/21/19 21:08 Dose: 100 mls/hr Documented by: Indomethacin (Indocin) 100 mg RECTAL ONCE ONE Stop: 05/22/19 11:01 Lisinopril (Zestril) 20 mg PO DAILY [facility] Last Admin: 05/21/19 08:13 Dose: 20 mg Documented by: Metoprolol Tartrate (Lopressor) 50 mg PO BID [facility] Last Admin: 05/21/19 21:08 Dose: 50 mg Documented by: Miscellaneous Information (Potassium Per Protocol) 1 each MISCELLANE DAILY PRN; Protocol PRN Reason: Per Protocol Naloxone HCl (Narcan) 0.2 mg IV Q2M PRN PRN Reason: Opioid Reversal Ondansetron HCl (Zofran) 4 mg IVP Q8HR PRN PRN Reason: Nausea And Vomiting Pantoprazole Sodium (Protonix) 40 mg IV DAILY [facility] Last Admin: 05/21/19 08:13 Dose: 40 mg Documented by: Objective - Vital Signs Vital signs: Vital Signs Temp 98.5 F 05/21/19 15:01 Pulse 86 05/21/19 15:01 Resp 16 05/21/19 15:01 BP 175/86 05/21/19 15:01 Pulse Ox 94 L 05/21/19 15:01 Intake & Output 05/21/19 05/21/19 05/22/19 06:59 18:59 06:59 Intake Total 480 Balance 480 Weight 79.8 kg Intake: Oral 480 Other: Voiding Method Toilet # Voids 1 2 - Exam PHYSICAL EXAMINATION: Patient is lying in the bed comfortably, no acute distress, awake alert and oriented.. HEENT: Normocephalic. Neck is supple. Pupils reactive. Nostrils clear. Oral cavity is moist. Ears reveal no drainage. Neck reveals no JVD, carotid bruits, or thyromegaly. CHEST EXAMINATION: Trachea is central. Symmetrical expansion. Lung rios clear to auscultation and percussion. CARDIAC: Normal S1, S2 with no gallops. No murmurs ABDOMEN: Soft. Bowel sounds normal. No organomegaly. No abdominal bruits. Extremities: reveal no edema. No clubbing or cyanosis Neurologically awake, alert, oriented x3 with well-coordinated movements. No focal deficits noted Skin: No rash or skin lesions. Psychiatric: Coperative. Nonsuicidal Musculoskeletal: No joint swelling or deformity. Normal range of motion. - Labs CBC & Chem 7: 05/21/19 06:01 05/21/19 06:01 Labs: Abnormal Lab Results - Last 24 Hours (Table) 05/20/19 05/21/19 05/21/19 Range/Units 22:25 06:01 06:01 WBC 14.8 H (3.8-10.6) k/uL RBC 3.75 L (3.80-5.40) m/uL Hgb 10.4 L (11.4-16.0) gm/dL MCHC 29.9 L (31.0-37.0) g/dL Neutrophils # 12.8 H (1.3-7.7) k/uL PT 16.2 H (9.0-12.0) sec INR 1.6 H (<1.2) Potassium 3.4 L (3.5-5.1) mmol/L Chloride 113 H (98-107) mmol/L Carbon Dioxide 18 L (22-30) mmol/L BUN 19 H (7-17) mg/dL Calcium 7.7 L (8.4-10.2) mg/dL Total Bilirubin 4.1 H (0.2-1.3) mg/dL AST 131 H (14-36) U/L ALT 181 H (9-52) U/L Alkaline Phosphatase 141 H (38-126) U/L Troponin I (0.000-0.034) ng/mL Total Protein 5.4 L (6.3-8.2) g/dL Albumin 2.7 L (3.5-5.0) g/dL 05/21/19 Range/Units 06:01 WBC (3.8-10.6) k/uL RBC (3.80-5.40) m/uL Hgb (11.4-16.0) gm/dL MCHC (31.0-37.0) g/dL Neutrophils # (1.3-7.7) k/uL PT (9.0-12.0) sec INR (<1.2) Potassium (3.5-5.1) mmol/L Chloride (98-107) mmol/L Carbon Dioxide (22-30) mmol/L BUN (7-17) mg/dL Calcium (8.4-10.2) mg/dL Total Bilirubin (0.2-1.3) mg/dL AST (14-36) U/L ALT (9-52) U/L Alkaline Phosphatase (38-126) U/L Troponin I 0.817 H* (0.000-0.034) ng/mL Total Protein (6.3-8.2) g/dL Albumin (3.5-5.0) g/dL Microbiology - Last 24 Hours (Table) 05/20/19 13:24 Blood Culture - Preliminary Blood No Growth after 24 hours Assessment and Plan Assessment: Right flank pain. Patient was admitted to hospital right flank pain along with elevated liver enzymes and slightly elevated bilirubin level with biliary ductal dilatation in the CT. choledocholithiasis with possible cholangitis cannot be excluded. Sepsis secondary to above Hyperbilirubinemia Lactic acidosis. Improved now Possible UTI with abnormal urine sample. Low suspicion for infection. Follow- up urine culture report Elevated troponin level. Possible NSTEMI Elevated liver enzymes History of breast cancer status post left lumpectomy with lymph nodes. Currently on Aromasin. Hypertensive urgency History of cholecystectomy DVT prophylaxis with heparin subcu. Plan: Patient will be started on antibiotics in the form of ceftriaxone and Flagyl. Continue with IV hydration and follow-up lactic acid level. Follow-up urine culture and blood culture reports. Continue pain management. MRCP was done.. Patient was seen by gastroenterology. Cardiology recommends catheterization. No prior history of C AD. Follow up closely and further recommendations based on the clinical course. Prognosis is guarded this time. Time with Patient: Greater than 30
[2019-05-22] MEDS: hydrALAZINE HCL 50 MG TAB PO PRN ×2 (00:08→10:02)
[2019-05-22] MEDS: MELATONIN 3 MG TABLET PO PRN ×2 (00:08→23:57)
[2019-05-22] MEDS: metroNIDAZOLE-NS PMX 500 MG in SALINE 1 100ML.BAG IVPB SCH ×3 (06:03→21:50)
[2019-05-22 06:25] LABS: Basophils % (A) 0 %; Eosinophils # (A) 0.1 k/uL (0-0.7); Eosinophils % (A) 1 %; HCT 34.3 % (34.0-46.0); HGB 10.8 gm/dL (11.4-16.0); Lymphocytes # (A) 1.3 k/uL (1.0-4.8); Lymphocytes % (A) 11 %; MCH 28.9 pg (25.0-35.0); MCHC 31.5 g/dL (31.0-37.0); MCV 91.7 fL (80.0-100.0); Mean Platelet Volume 7.6; Monocytes # (A) 0.6 k/uL (0-1.0); Monocytes % (A) 5 %; Neutrophils # (A) 9.5 k/uL (1.3-7.7); Neutrophils % (A) 81 %; Platelet Count 210 k/uL (150-450); RBC 3.75 m/uL (3.80-5.40); RDW 13.5 % (11.5-15.5); WBC 11.7 k/uL (3.8-10.6)
[2019-05-22 06:42] LABS: INR 1.2 (<1.2); Prothrombin Time 12.6 sec (9.0-12.0)
[2019-05-22 06:47] LABS: Albumin 3.1 g/dL (3.5-5.0); Calcium 8.4 mg/dL (8.4-10.2); Potassium 3.2 mmol/L (3.5-5.1); Total Bilirubin 1.5 mg/dL (0.2-1.3); Total Protein 5.8 g/dL (6.3-8.2)
[2019-05-22] MEDS: METOPROLOL TARTRATE 50 MG TAB PO SCH (08:09)
[2019-05-22] MEDS: PANTOPRAZOLE 40 MG/10 ML VIAL IV SCH ×2 (08:09→08:13)
[2019-05-22] MEDS: LISINOPRIL 20 MG TAB PO SCH (08:09)
[2019-05-22] MEDS: HEPARIN SODIUM,PORCINE 5,000 UNIT/ML 1 ML VIAL SQ SCH ×2 (08:13→21:50)
[2019-05-22] MEDS: SODIUM CHLORIDE 0.9% 1,000 ML IV SCH (08:18)
[2019-05-22] MEDS ORDERED: PRAVASTATIN SODIUM 20 MG TAB PO SCH (09:00)
[2019-05-22] MEDS ORDERED: INDOMETHACIN 50MG SUPPOSITORY RECTAL ONE (11:00)
[2019-05-22] MEDS ORDERED: LABETALOL 5 MG/ML VIAL MDV IVP STA (11:32)
[2019-05-22] MEDS ORDERED: LORazepam 2 MG/ML INJ IV STA (11:33)
[2019-05-22] MEDS ORDERED: LIDOCAINE 1% INJ 10MG/ML (20 ML MDV) ONE (12:16)
[2019-05-22] MEDS ORDERED: PROPOFOL 10 MG/ML 20 ML VIAL IV ONE (12:16)
[2019-05-22] MEDS ORDERED: IV FLUID CONTINUATION 300 ML IV ONE (12:22)
--- NOTE | 2019-05-22 13:05 | P.PCN ---
Date of Procedure: 05/22/19 Procedure(s) Performed: Brief history: Patient is a 71 year-old pleasant lady scheduled for an ERCP as part of evaluation of right flank pain/abdominal pain and elevated serum transaminases for the last 2 days' duration. He had an ESD within the range of 600s and bilirubin was up to 4.1 g/dL. She had an MRCP done that showed dilated intra-and extra hepatic biliary system with 2 small areas in the distal common bile duct suspicious for CBD stones and hence she is scheduled for an ERCP to evaluate further. Procedure performed: Attempted ERCP with biopsy Preoperative diagnoses: Right flank pain/elevated LFTs and jaundice/MRCP showing Xiong CBD stones IV sedation per anesthesia: Procedure: After informed consent was obtained from the patient and after the risks benefits and complications including bleeding perforation and pancreatitis explained in detail the patient was brought into the endoscopy unit. The patient was placed in prone position and IV conscious sedation was administered by anesthesia under continuous monitoring. The Olympus side-viewing duodenoscope was then inserted into the mouth and esophagus intubated without any difficulty. The scope was gradually advanced into the stomach and duodenum. Despite multiple times I was not able to identify the ampullary orifice. There was a large periampullary diverticulum identified, using a tapered catheter I tried to move the folds around in the periampullary area and was still not able to identify the ampullary orifice almost 30 minutes. At this time the procedure was terminated. The scope was withdrawn to the stomach. Adequate examination was performed. There was a 1 cm ulceration noted in the proximal body the sto mach. Biopsies were done from the antrum. The esophagus appeared normal. Patient tolerated the procedure well. Impression: 1. Large periampullary diverticulum 2. Unable to visualize the ampullary orifice/major papula despite multiple attempts 3. 1 cm proximal ulcer in the gastric body the stomach status post biopsies Recommendations: The findings of this examination were discussed with the patient as well as a family. Continue with antibiotics. Her serum transaminases have improved today and so did the bilirubin that is decreased to 1.5 mg/dl. We will monitor her LFTs closely.. We will discuss with , and he can proceed with cardiac catheterization at this time.
[2019-05-22] MEDS ORDERED: ALPRAZolam 0.25 MG TAB PO PRN (13:53)
[2019-05-22] MEDS ORDERED: NITROGLYCERIN SL TABS 0.4 MG TAB SUBLINGUAL PRN (13:53)
[2019-05-22] MEDS ORDERED: ALPRAZolam 0.5 MG TAB PO PRN (13:53)
[2019-05-22] MEDS ORDERED: ASPIRIN 325 MG TAB PO STA (13:53)
[2019-05-22] MEDS ORDERED: SODIUM CHLORIDE 0.9% 1,000 ML in EMPTY BAG 1 BAG IV ONE (13:53)
--- NOTE | 2019-05-22 14:18 | P.PN ---
Subjective This is Paula Dumont PA-C dictating a progress note on this patient The patient was interviewed and examined by me as well as by Dr. Prieto Case discussed with Dr. Prieto and he agrees with the plan of care IMPRESSION / ASSESSMENT: Elevated troponins, peaked at 1.5, trending down, possibly secondary to non-Q-wave SD versus hypertension hypertension, BP in the 200s systolic dilated common bile duct s/p ERCP History of breast cancer PLAN: Transdermal clonidine patch to control blood pressure while patient is nothing by mouth Discussed with Dr. Mcnamara, plan for coronary angiogram Continue management medical management with aspirin and statin and beta blockers HPI/interval history Patient is a 79-year-old female with a past medical history significant for hypertension and breast cancer who presented with complaints of abdominal pain and back pain. She did not have any complaints of chest pain, shoulder pain or jaw pain, no shortness of breath. She was found to have abnormal liver enzymes and a dilated common bile duct. She was also found to have elevated troponins. EKG showed sinus tachycardia with ST elevations and inverted T waves V3 through V6. She underwent ERCP but due to large periampullary diverticulum, the major papilla was not able to be visualized. Patient seen and examined resting in bed. Complaining of back pain. Denies any chest pain or shortness of breath. EXAMINATION Temperature 98.0F, pulse 84, respirations 16, blood pressure 202/92, oxygen saturation 94% on room air Patient seen and examined resting in bed, in no acute distress Lungs are clear to auscultation bilaterally Heart is regular, no murmurs noted No elevated JVD No lower extremity edema REVIEW OF LABS, ECG WBC 11.7, hemoglobin 10.8, platelets 210, potassium 3.2, BUN 19, creatinine 0.87, Troponins 0.027, 0.42, 0.892, 1.5, 0.817 Echocardiogram with suboptimal views, unable to assess EF Objective - Vital Signs Vital signs: Vital Signs Temp 98.0 F 05/22/19 08:00 Pulse 84 05/22/19 12:00 Resp 16 05/22/19 12:00 BP 207/93 05/22/19 11:09 Pulse Ox 95 05/22/19 11:09 Intake & Output 05/21/19 05/22/19 05/22/19 18:59 06:59 18:59 Intake Total 480 200 Output Total 300 Balance 480 -100 Weight 81.3 kg Intake: IV 200 Oral 480 Output: Urine 300 Other: Voiding Method Toilet # Voids 2 2 1 - Labs CBC & Chem 7: 05/22/19 05:55 05/22/19 05:55 Labs: Abnormal Lab Results - Last 24 Hours (Table) 05/22/19 05/22/19 05/22/19 Range/Units 05:55 05:55 05:55 WBC 11.7 H (3.8-10.6) k/uL RBC 3.75 L (3.80-5.40) m/uL Hgb 10.8 L (11.4-16.0) gm/dL Neutrophils # 9.5 H (1.3-7.7) k/uL PT 12.6 H (9.0-12.0) sec INR 1.2 H (<1.2) Potassium 3.2 L (3.5-5.1) mmol/L Chloride 114 H (98-107) mmol/L Carbon Dioxide 19 L (22-30) mmol/L BUN 19 H (7-17) mg/dL Glucose 128 H (74-99) mg/dL Total Bilirubin 1.5 H (0.2-1.3) mg/dL AST 64 H (14-36) U/L ALT 131 H (9-52) U/L Alkaline Phosphatase 173 H (38-126) U/L Total Protein 5.8 L (6.3-8.2) g/dL Albumin 3.1 L (3.5-5.0) g/dL Microbiology - Last 24 Hours (Table) 05/20/19 13:24 Blood Culture - Preliminary Blood No Growth after 24 hours
[2019-05-22] MEDS ORDERED: cloNIDine 0.2 MG/24HR PATCH TRANSDERM SCH (14:30)
[2019-05-22] MEDS: POTASSIUM CHLORIDE ER 20 MEQ TAB.ER PO SCH ×2 (15:28→17:20)
[2019-05-22] MEDS: CARVEDILOL 6.25 MG TAB PO SCH (17:20)
[2019-05-22] MEDS: hydrALAZINE HCL 50 MG TAB PO SCH ×2 (17:20→21:49)
[2019-05-23] MEDS ORDERED: ATORVASTATIN 80 MG TAB PO ONE (06:00)
[2019-05-23] MEDS ORDERED: ASPIRIN 325 MG TAB PO ONE (06:00)
[2019-05-23] MEDS: CARVEDILOL 6.25 MG TAB PO SCH (06:33)
[2019-05-23 06:34] LABS: Glucose,Whole Blood 96 mg/dL (75-99)
[2019-05-23] MEDS: metroNIDAZOLE-NS PMX 500 MG in SALINE 1 100ML.BAG IVPB SCH (06:34)
[2019-05-23] MEDS: SODIUM CHLORIDE 0.9% 1,000 ML IV SCH ×2 (06:34→22:20)
[2019-05-23] MEDS: HEPARIN SODIUM,PORCINE 5,000 UNIT/ML 1 ML VIAL SQ SCH ×2 (08:16→20:07)
[2019-05-23] MEDS: LISINOPRIL 20 MG TAB PO SCH (08:16)
[2019-05-23] MEDS: hydrALAZINE HCL 50 MG TAB PO SCH ×3 (08:16→22:20)
[2019-05-23] MEDS ORDERED: CARVEDILOL 6.25 MG TAB PO STA (08:26)
[2019-05-23] MEDS ORDERED: ALPRAZolam 0.25 MG TAB PO PRN (08:30)
[2019-05-23] MEDS ORDERED: SODIUM CHLORIDE 0.9% 1,000 ML in EMPTY BAG 1 BAG IV ONE (08:30)
[2019-05-23] MEDS ORDERED: ATORVASTATIN 80 MG TAB PO STA (08:30)
[2019-05-23] MEDS ORDERED: ASPIRIN 325 MG TAB PO STA (08:30)
[2019-05-23] MEDS ORDERED: ALPRAZolam 0.5 MG TAB PO PRN (08:30)
[2019-05-23] MEDS ORDERED: NITROGLYCERIN SL TABS 0.4 MG TAB SUBLINGUAL PRN (08:30)
[2019-05-23] MEDS ORDERED: LISINOPRIL 20 MG TAB PO SCH (12:00)
--- NOTE | 2019-05-23 12:12 | P.PN ---
Subjective This is Paula Dumont PA-C dictating a progress note on this patient The patient was interviewed and examined by me as well as by Dr. Prieto Case discussed with Dr. Prieto and he agrees with the plan of care IMPRESSION / ASSESSMENT: Abnormal troponins, possible non-Q-wave RI versus hypertension Biliary tree dilation, status post ERCP Hypertension, blood pressure control improving History of breast cancer PLAN: Increase carvedilol to 12.5 mg twice a day Will switch from lisinopril to losartan tomorrow since she is complaining of co ugh We'll also consider stopping hydralazine and switching to hydrochlorothiazide Spoke with Dr. Mcnamara, we'll plan for coronary angiogram prior to discharge HPI/interval history Patient is a 79-year-old female with a past medical history of hypertension and breast cancer who presented with complaints of abdominal pain and back pain. She was found to have abnormal liver enzymes and a dilated common bile duct and underwent ERCP but the major papilla could not be visualized. She also was found to have elevated troponins and her EKG showed T-wave inversions V3 through V6. Her blood pressure has also been very elevated throughout the admission. Yesterday we started her on carvedilol 6.25 mg twice a day. Her blood pressure has improved but remains in the 150s systolic. Patient seen and examined resting in bed. States her pain has improved. Denies any chest pain or shortness of breath. No dizziness. EXAMINATION Temperature 98.3F, pulse 72, respirations 18, blood pressure 146/82, oxygen saturation 95% on room air Patient seen and examined resting comfortably in bed, in no acute distress Lungs clear to auscultation bilaterally Heart is regular, no murmurs noted No elevated JVD No lower extremity edema REVIEW OF LABS, ECG Labs from yesterday show WBC 11.7, hemoglobin 10.8, platelets 210, potassium 3.2, BUN 19, creatinine 0.87, no new labs today Objective - Vital Signs Vital signs: Vital Signs Temp 97.9 F 05/23/19 11:28 Pulse 70 05/23/19 11:28 Resp 18 05/23/19 11:28 BP 138/77 05/23/19 11:28 Pulse Ox 97 05/23/19 11:28 Intake & Output 05/22/19 05/23/19 05/23/19 18:59 06:59 18:59 Intake Total 380 200 Output Total 300 Balance 80 200 Weight 80.2 kg Intake: IV 200 Oral 180 200 Output: Urine 300 Other: Voiding Method Toilet Toilet # Voids 0 2 - Labs CBC & Chem 7: 05/22/19 05:55 05/22/19 05:55 Labs: Microbiology - Last 24 Hours (Table) 05/20/19 04:33 Urine Culture - Final Urine,Clean Catch 05/20/19 13:24 Blood Culture - Preliminary Blood No Growth after 48 hours
[2019-05-23 12:34] LABS: Basophils % (A) 0 %; Eosinophils # (A) 0.3 k/uL (0-0.7); Eosinophils % (A) 3 %; HCT 34.3 % (34.0-46.0); HGB 10.9 gm/dL (11.4-16.0); Lymphocytes % (A) 13 %; MCH 29.3 pg (25.0-35.0); MCHC 31.7 g/dL (31.0-37.0); MCV 92.4 fL (80.0-100.0); Mean Platelet Volume 7.4; Monocytes # (A) 0.5 k/uL (0-1.0); Monocytes % (A) 7 %; Neutrophils # (A) 5.7 k/uL (1.3-7.7); Neutrophils % (A) 74 %; Platelet Count 220 k/uL (150-450); RBC 3.71 m/uL (3.80-5.40); RDW 13.3 % (11.5-15.5); WBC 7.7 k/uL (3.8-10.6)
[2019-05-23 12:38] LABS: Calcium 8.5 mg/dL (8.4-10.2); Potassium 3.8 mmol/L (3.5-5.1)
[2019-05-23] MEDS: metroNIDAZOLE 500 MG TAB PO SCH ×2 (15:43→22:20)
--- NOTE | 2019-05-23 16:58 | PN ---
PROGRESS NOTE DATE OF SERVICE: May 23, 2019 Patient is a 79-year-old pleasant white female admitted to hospital with right flank pain radiating to the right upper quadrant area. She was noted to have elevated LFTs and jaundice. She had an MRCP done that showed evidence of possible small stones in the CBD. She underwent an attempted ERCP yesterday but the ampullary orifice could not be visualized because of the large periampullary diverticulum and hence the procedure was terminated. In the meantime, she was also noted to have elevated troponins and is scheduled for cardiac catheterization by Dr. Mcnamara for possible acute CO. However, her blood pressure was very high and hence the cardiac catheterization was canceled today. She is rescheduled for tomorrow. In the meantime, she is doing well. She denies any abdominal pain. No flank pain. No fever, chills, night sweats. PHYSICAL EXAMINATION: She appears comfortable. No apparent distress. VITAL SIGNS: Stable. Blood pressure is 181/71, pulse 80, temperature 97.8. HEENT examination unremarkable. Conjunctivae pink. Sclerae anicteric. Oral cavity no lesions. NECK: No JVD or lymph node enlargement. CHEST: Clear to auscultation. HEART: Regular rate and rhythm. ABDOMEN: Soft. Bowel sounds are positive. No organomegaly. EXTREMITIES: No pedal edema. SKIN no rashes. NEUROLOGIC: Alert and oriented x3. No focal deficits. LABS: From today WBC 7.7, hemoglobin 10.9, platelets are normal. Basic metabolic panel is within normal limits. Liver enzymes were not done. IMPRESSION: 1. This is a lady who presents to the hospital with acute onset of severe right flank pain associated with elevated LFTs and further workup including an MRCP revealed dilated intra and extrahepatic biliary system with small filling defects in the distal common bile duct suggestive of stones. She had leukocytosis at time of admission hospital, was on broad spectrum antibiotics and her symptoms have significantly improved. Leukocytosis resolved. LFTs are improving. Attempted ERCP yesterday was as ampullary orifice could not be visualized because of the large periampullary diverticulum. Her LFTs are gradually improving. 2. Elevated troponin/acute myocardial infarction. The patient is scheduled for cardiac catheterization tomorrow. 3. Uncontrolled hypertension. RECOMMENDATIONS: 1. Repeat LFTs in the morning. 2. Continue with broad-spectrum antibiotics. 3. If her serum transaminases and bilirubin continue to improve, no plans on any repeat ERCP at the present time. However, if she has any recurrent symptoms or her LFTs increase, will consider referring her to [facility] for an ERCP. The plan was discussed with the patient as well as the daughter who is at the bedside. Thank you for this consultation. ESTELA / DULCE MARIA: [id number] /
[2019-05-23] MEDS: CARVEDILOL 12.5 MG TAB PO SCH ×3 (17:09→18:33)
--- NOTE | 2019-05-23 22:39 | P.PN ---
Subjective Progress Note Date: 05/22/19 Principal diagnosis: Biliary ductal dilation and hyperbilirubinemia Patient is 79-year-old female with a known history of hypertension, history of left breast cancer status post surgery and currently on Aromasin and previous history of cholecystectomy came to ER with complaints of right flank pain started since last night. Pain is mainly in the right flank no radiation. No a ggravating or relieving factors. Associated with some nausea. No episodes of vomiting. Patient did have chills at home. No fever noted when she came to the hospital. Otherwise denied any complains of chest pain or shortness of breath. Patient is visiting her daughter and has been in [place] for the past 1 week. Patient was found to have elevated liver enzymes and bilirubin level II.4 on admission. Patient was tachycardic. CT of the abdomen pelvis showed dilated biliary tree. Common bile dilated. This could relate to distal common bile stone or stricture. MRCP WAS RECOMMENDED. ULTRASOUND OF THE ABDOMEN SHOWED normal post cholecystectomy abdomen. EKG showed sinus tachycardia on admission. Patient was also found to have elevated troponin level 0.027 and 0.042. Denied any prior history of coronary artery disease. Lactic acid level was 2.4. Cardiology and gastroenterology was consulted. Patient was tachycardic and systolic blood pressures went up to 203 MM Hg today afternoon. 05/21/2019 Patient is currently lying in the bed comfortably. Denied any complaints of right flank pain today., Except one episode lasting about a minute this morning. Otherwise patient's bilirubin went up to 4. Levaquin is trending down. WBC 14.8. Patient was started on antibiotics in the form of ceftriaxone and Flagyl for possible cholangitis. Patient was febrile last night. Currently patient is afebrile. No complains of dysuria or hematuria. Troponin went up to 1.050. Cardiology recommends cardiac catheterization. Patient denied any complaints of chest pain or shortness of breath now. Gastroenterology is planning for ERCP likely tomorrow. Follow-up CBC and CMP and PT/INR tomorrow. 05/22/2019 Patient denied any complaints of abdominal pain or flank pain today. Patient was taken to ERCP today. 1. Large periampullary diverticulum 2. Unable to visualize the ampullary orifice/major papula despite multiple attempts 3. 1 cm proximal ulcer in the gastric body the stomach status post biopsies Otherwise bilirubin level came down to 1.5. Leukocytosis is improving. No complaints of chest pain or shortness of breath. Cardiology is planning for cardiac catheterization likely tomorrow. Discussed with her daughter at bedside. Current medications reviewed. Active Medications Heparin Sodium (Porcine) (Heparin) 5,000 unit SQ Q12HR [facility] Last Admin: 05/21/19 21:08 Dose: 5,000 unit Documented by: Sodium Chloride (Saline 0.9%) 1,000 mls @ 100 mls/hr IV .Q10H [facility] Last Admin: 05/21/19 21:09 Dose: 100 mls/hr Documented by: Ceftriaxone Sodium 1 gm/ (Sodium Chloride) 50 mls @ 100 mls/hr IVPB Q24HR [facility] Last Admin: 05/21/19 08:15 Dose: 100 mls/hr Documented by: Metronidazole 500 mg/ IV (Solution) 100 mls @ 100 mls/hr IVPB Q8H [facility] Last Admin: 05/21/19 21:08 Dose: 100 mls/hr Documented by: Indomethacin (Indocin) 100 mg RECTAL ONCE ONE Stop: 05/22/19 11:01 Lisinopril (Zestril) 20 mg PO DAILY [facility] Last Admin: 05/21/19 08:13 Dose: 20 mg Documented by: Metoprolol Tartrate (Lopressor) 50 mg PO BID [facility] Last Admin: 05/21/19 21:08 Dose: 50 mg Documented by: Miscellaneous Information (Potassium Per Protocol) 1 each MISCELLANE DAILY PRN; Protocol PRN Reason: Per Protocol Naloxone HCl (Narcan) 0.2 mg IV Q2M PRN PRN Reason: Opioid Reversal Ondansetron HCl (Zofran) 4 mg IVP Q8HR PRN PRN Reason: Nausea And Vomiting Pantoprazole Sodium (Protonix) 40 mg IV DAILY [facility] Last Admin: 05/21/19 08:13 Dose: 40 mg Documented by: Objective - Vital Signs Vital signs: Vital Signs Temp 97.6 F 05/22/19 17:17 Pulse 88 05/22/19 17:17 Resp 16 05/22/19 17:17 BP 178/99 05/22/19 17:17 Pulse Ox 95 05/22/19 17:17 Intake & Output 05/22/19 05/22/19 05/23/19 06:59 18:59 06:59 Intake Total 380 Output Total 300 Balance 80 Weight 81.3 kg Intake: IV 200 Oral 180 Output: Urine 300 Other: Voiding Method Toilet # Voids 2 0 - Exam PHYSICAL EXAMINATION: Patient is lying in the bed comfortably, no acute distress, awake alert and oriented.. HEENT: Normocephalic. Neck is supple. Pupils reactive. Nostrils clear. Oral cavity is moist. Ears reveal no drainage. Neck reveals no JVD, carotid bruits, or thyromegaly. CHEST EXAMINATION: Trachea is central. Symmetrical expansion. Lung rios clear to auscultation and percussion. CARDIAC: Normal S1, S2 with no gallops. No murmurs ABDOMEN: Soft. Bowel sounds normal. No organomegaly. No abdominal bruits. Extremities: reveal no edema. No clubbing or cyanosis Neurologically awake, alert, oriented x3 with well-coordinated movements. No focal deficits noted Skin: No rash or skin lesions. Psychiatric: Coperative. Nonsuicidal Musculoskeletal: No joint swelling or deformity. Normal range of motion. - Labs CBC & Chem 7: 05/23/19 12:09 05/23/19 12:09 Labs: Abnormal Lab Results - Last 24 Hours (Table) 05/22/19 05/22/19 05/22/19 Range/Units 05:55 05:55 05:55 WBC 11.7 H (3.8-10.6) k/uL RBC 3.75 L (3.80-5.40) m/uL Hgb 10.8 L (11.4-16.0) gm/dL Neutrophils # 9.5 H (1.3-7.7) k/uL PT 12.6 H (9.0-12.0) sec INR 1.2 H (<1.2) Potassium 3.2 L (3.5-5.1) mmol/L Chloride 114 H (98-107) mmol/L Carbon Dioxide 19 L (22-30) mmol/L BUN 19 H (7-17) mg/dL Glucose 128 H (74-99) mg/dL Total Bilirubin 1.5 H (0.2-1.3) mg/dL AST 64 H (14-36) U/L ALT 131 H (9-52) U/L Alkaline Phosphatase 173 H (38-126) U/L Total Protein 5.8 L (6.3-8.2) g/dL Albumin 3.1 L (3.5-5.0) g/dL Microbiology - Last 24 Hours (Table) 05/20/19 13:24 Blood Culture - Preliminary Blood No Growth after 48 hours Assessment and Plan Assessment: Right flank pain. Patient was admitted to hospital right flank pain along with elevated liver enzymes and slightly elevated bilirubin level with biliary ductal dilatation in the CT. choledocholithiasis with possible cholangitis cannot be excluded. Sepsis secondary to above Hyperbilirubinemia Lactic acidosis. Improved now Possible UTI with abnormal urine sample. Low suspicion for infection. Follow- up urine culture report Elevated troponin level. Possible NSTEMI Elevated liver enzymes History of breast cancer status post left lumpectomy with lymph nodes. Currently on Aromasin. Hypertensive urgency History of cholecystectomy DVT prophylaxis with heparin subcu. Plan: Patient will be started on antibiotics in the form of ceftriaxone and Flagyl. Continue with IV hydration and follow-up lactic acid level. Follow-up urine culture and blood culture reports. Continue pain management. MRCP was done.. Patient was seen by gastroenterology. Cardiology recommends catheterization. No prior history of CAD. Follow up closely and further recommendations based on the clinical course. Prognosis is guarded this time. Time with Patient: Greater than 30
[2019-05-24 07:48] LABS: Basophils % (A) 0 %; Eosinophils # (A) 0.4 k/uL (0-0.7); Eosinophils % (A) 5 %; HGB 10.6 gm/dL (11.4-16.0); Lymphocytes # (A) 1.4 k/uL (1.0-4.8); Lymphocytes % (A) 19 %; MCH 29.2 pg (25.0-35.0); MCV 91.3 fL (80.0-100.0); Mean Platelet Volume 7.3; Monocytes # (A) 0.5 k/uL (0-1.0); Monocytes % (A) 7 %; Neutrophils # (A) 4.9 k/uL (1.3-7.7); Neutrophils % (A) 66 %; Platelet Count 226 k/uL (150-450); RBC 3.61 m/uL (3.80-5.40); RDW 13.4 % (11.5-15.5); WBC 7.4 k/uL (3.8-10.6)
[2019-05-24 08:05] LABS: ALT 77 U/L (9-52); AST 32 U/L (14-36); African American GFR (CKD) >90 (>60 ml/min/1.73 sqM); Albumin 2.9 g/dL (3.5-5.0); Alkaline Phosphatase 142 U/L (38-126); Anion Gap 6 mmol/L; Blood Urea Nitrogen 14 mg/dL (7-17); Calcium 8.2 mg/dL (8.4-10.2); Carbon Dioxide 22 mmol/L (22-30); Chloride 111 mmol/L (98-107); Glucose 97 mg/dL (74-99); Potassium 3.5 mmol/L (3.5-5.1); Sodium 139 mmol/L (137-145); Total Bilirubin 0.8 mg/dL (0.2-1.3); Total Protein 5.6 g/dL (6.3-8.2)
[2019-05-24] MEDS: metroNIDAZOLE 500 MG TAB PO SCH ×3 (09:18→22:52)
[2019-05-24] MEDS: hydrALAZINE HCL 50 MG TAB PO SCH ×3 (09:18→22:52)
[2019-05-24] MEDS: PRAVASTATIN SODIUM 20 MG TAB PO SCH (09:18)
[2019-05-24] MEDS: CARVEDILOL 12.5 MG TAB PO SCH ×2 (09:18→15:51)
[2019-05-24] MEDS: HEPARIN SODIUM,PORCINE 5,000 UNIT/ML 1 ML VIAL SQ SCH ×2 (09:18→20:35)
[2019-05-24] MEDS: PANTOPRAZOLE 40 MG TABLET PO SCH (09:18)
[2019-05-24] MEDS: LOSARTAN 50 MG TAB PO SCH (12:00)
[2019-05-24] MEDS ORDERED: IV FLUID CONTINUATION 700 ML IV ONE (13:39)
[2019-05-24] MEDS ORDERED: VERAPAMIL 2.5 MG/ML 2 ML AMP ONE (13:43)
[2019-05-24] MEDS ORDERED: ASPIRIN 325 MG TAB ONE (13:46)
[2019-05-24] MEDS ORDERED: ASPIRIN 325 MG TAB PO ONE (13:53)
[2019-05-24] MEDS ORDERED: MIDAZOLAM 2 MG/2 ML VIAL IVP ONE (13:54)
[2019-05-24] MEDS ORDERED: LIDOCAINE 1% INJ 10MG/ML (20 ML MDV) SQ ONE (13:54)
[2019-05-24] MEDS ORDERED: IOPAMIDOL-370 125ML BTL INJ ONE (14:20)
[2019-05-24] MEDS ORDERED: RX INFO: IV CONTRAST WAS GIVEN 1 EACH MISC MISCELLANE PRN (14:21)
[2019-05-24] MEDS ORDERED: SODIUM CHLORIDE 0.9% 1,000 ML IV SCH (14:30)
--- NOTE | 2019-05-24 14:30 | P.PCN ---
Date of Procedure: 05/24/19 Operative Findings: CARDIAC CATHETERIZATION PERFORMING PHYSICIAN: Basim Mcnamara MD, RPVI PROCEDURE PERFORMED: 1. Selective right and left coronary angiogram 2. Left heart catheterization 3. Left ventriculography INDICATION: This is a pleasant 79-year-old female patient was admitted to the hospital initially with abdominal discomfort. She was ruled in for acute non-ST d eviation myocardial infarction. The troponin came in to be abnormal and above one. EKG showed ST changes and T-wave abnormalities concerning for severe underlying coronary artery disease. Because of that coronary angiogram was advised. COMPLICATION: None APPROACH: Right common femoral artery LEVEL OF SEDATION: Moderate with a station length of 24 minutes PROCEDURE DESCRIPTION: After obtaining an informed consent, the patient was brought to cardiac forestry laborer. Local anesthesia was performed using lidocaine subcutaneously. The right common femoral artery was cannulated using Seldinger technique, the guidewire passed easily, following that we advanced a 6 [place] sheath dilator assembly, the wire and dilator were removed and sheath was flushed. Selective right and left coronary angiogram using a 6-[place] JR4 and JL catheters. Following that we did left heart catheterization using 6-[place] pigtail catheter. The procedure was completed there was no complication. SELECTIVE CORONARY ANGIOGRAM: The right coronary artery: Is a large caliber vessel none dominant vessel. The ostial right appears to be disease in the range of 50% only. The midright has mild disease only. Distally it bifurcates into PDA and PLV branches and both appeared to be angiographically normal. Left main: Is angiographically normal. Bifurcates into LCx and LAD. The left circumflex: Is a large caliber vessel and nondominant vessel. Its angiographically normal. In the midportion gives rises into a large OM branch which bifurcates into 2 subbranches and both appeared to be angiographically normal. The circumflex continue after that as a small-caliber vessel in the AV groove The left anterior descending artery: Is angiographically normal. And the proximal portion gives rises into a small diagonal branch and in the midportion gives rise into a large second diagonal branch which seems to be angiographically normal. HEMODYNAMICS: The LVEDP was 18 mmHg without significant gradient across aortic valve LEFT VENTRICULOGRAPHY: Was performed in the HARRIS projection and using a power injection. The left ventricular systolic function seems to be impaired with EF around 40% with anteroapical, apical, inferoapical akinesia, finding consistent with stress- induced cardiomyopathy. CONCLUSION: 1. Mild to moderate nonobstructive coronary artery disease 2. Stress-induced cardiomyopathy/broken heart syndrome POSTPROCEDURE MANAGEMENT: Medical treatment Follow-up with the patient
--- NOTE | 2019-05-24 14:38 | P.PN ---
Subjective This is Paula Dumont PA-C dictating a progress note on this patient The patient was interviewed and examined by me as well as by Dr. Prieto Case discussed with Dr. Prieto and he agrees with the plan of care IMPRESSION / ASSESSMENT: Abnormal troponins, possible non-Q-wave [place] versus hypertension Biliary tree dilation, status post ERCP Hypertension, BP remains elevated History of breast cancer PLAN: switch from lisinopril to losartan 100 mg consider stopping hydralazine and switching to hydrochlorothiazide in the future scheduled for angiogram today HPI/interval history Patient is a 79-year-old female with a past medical history of hypertension and breast cancer who presented with complaints of abdominal pain and back pain. She was found to have abnormal liver enzymes and a dilated common bile duct and underwent ERCP but the major papilla could not be visualized. She also was found to have elevated troponins and her EKG showed T-wave inversions V3 through V6. She is awaiting coronary angiogram. Yesterday we increased her Coreg. Her blood pressure remains in the 150-180s systolic. Patient seen and examined sitting up in the chair. Her daughter is at the bedside. Denies any chest pain or shortness of breath. No abdominal pain. She is still coughing, nonproductive cough. EXAMINATION A mature 98F, pulse 76, respirations 20, blood pressure 180/91, oxygen saturation 96% on room air Patient seen and examined sitting up in the chair, appears comfortable Lungs clear to auscultation bilaterally Heart is regular, no murmurs noted No elevated JVD No lower extremity edema REVIEW OF LABS, ECG WBC 7.4, hemoglobin 10.6, platelet 226, potassium 3.5, BUN 14, creatinine 0.7 2 Objective - Vital Signs Vital signs: Vital Signs Temp 98 F 05/24/19 11:28 Pulse 73 05/24/19 11:28 Resp 20 05/24/19 11:28 BP 168/95 05/24/19 11:28 Pulse Ox 97 05/24/19 11:28 Intake & Output 05/23/19 05/24/19 05/24/19 18:59 06:59 18:59 Intake Total 1180 790 Balance 1180 790 Intake: IV 500 790 Sodium Chloride 0.9% 1, 640 000 ml In Empty Bag 1 bag @ 1 ML/KG/HR 80.2 mls/hr IV .[id number] [facility] Rx#: [id number] cefTRIAXone 1 gm In 400 50 Sodium Chloride 0.9% 50 ml @ 100 mls/hr IVPB Q24HR [facility] Rx#:[id number] metroNIDAZOLE-NS PMX 500 100 mg In Saline 1 100ml.bag @ 100 mls/hr IVPB Q8H [facility] Rx#:[id number] Oral 680 Other: Voiding Method Toilet Toilet Toilet # Voids 1 2 - Labs CBC & Chem 7: 05/24/19 05:38 05/24/19 05:38 Labs: Abnormal Lab Results - Last 24 Hours (Table) 05/24/19 05/24/19 Range/Units 05:38 05:38 RBC 3.61 L (3.80-5.40) m/uL Hgb 10.6 L (11.4-16.0) gm/dL Hct 33.0 L (34.0-46.0) % Chloride 111 H (98-107) mmol/L Calcium 8.2 L (8.4-10.2) mg/dL ALT 77 H (9-52) U/L Alkaline Phosphatase 142 H (38-126) U/L Total Protein 5.6 L (6.3-8.2) g/dL Albumin 2.9 L (3.5-5.0) g/dL Microbiology - Last 24 Hours (Table) 05/20/19 13:24 Blood Culture - Preliminary Blood No Growth after 72 hours
--- NOTE | 2019-05-24 16:40 | P.PN ---
Subjective Progress Note Date: 05/23/19 Principal diagnosis: Biliary ductal dilation and hyperbilirubinemia Patient is 79-year-old female with a known history of hypertension, history of left breast cancer status post surgery and currently on Aromasin and previous history of cholecystectomy came to ER with complaints of right flank pain started since last night. Pain is mainly in the right flank no radiation. No a ggravating or relieving factors. Associated with some nausea. No episodes of vomiting. Patient did have chills at home. No fever noted when she came to the hospital. Otherwise denied any complains of chest pain or shortness of breath. Patient is visiting her daughter and has been in [place] for the past 1 week. Patient was found to have elevated liver enzymes and bilirubin level II.4 on admission. Patient was tachycardic. CT of the abdomen pelvis showed dilated biliary tree. Common bile dilated. This could relate to distal common bile stone or stricture. MRCP WAS RECOMMENDED. ULTRASOUND OF THE ABDOMEN SHOWED normal post cholecystectomy abdomen. EKG showed sinus tachycardia on admission. Patient was also found to have elevated troponin level 0.027 and 0.042. Denied any prior history of coronary artery disease. Lactic acid level was 2.4. Cardiology and gastroenterology was consulted. Patient was tachycardic and systolic blood pressures went up to 203 MM Hg today afternoon. 05/21/2019 Patient is currently lying in the bed comfortably. Denied any complaints of right flank pain today., Except one episode lasting about a minute this morning. Otherwise patient's bilirubin went up to 4. Levaquin is trending down. WBC 14.8. Patient was started on antibiotics in the form of ceftriaxone and Flagyl for possible cholangitis. Patient was febrile last night. Currently patient is afebrile. No complains of dysuria or hematuria. Troponin went up to 1.050. Cardiology recommends cardiac catheterization. Patient denied any complaints of chest pain or shortness of breath now. Gastroenterology is planning for ERCP likely tomorrow. Follow-up CBC and CMP and PT/INR tomorrow. 05/22/2019 Patient denied any complaints of abdominal pain or flank pain today. Patient was taken to ERCP today. 1. Large periampullary diverticulum 2. Unable to visualize the ampullary orifice/major papula despite multiple attempts 3. 1 cm proximal ulcer in the gastric body the stomach status post biopsies Otherwise bilirubin level came down to 1.5. Leukocytosis is improving. No complaints of chest pain or shortness of breath. Cardiology is planning for cardiac catheterization likely tomorrow. 05/23/2019 Patient denied any new complaints today. No chest pain or shortness of breath. Denied further right flank pain. Patient has been afebrile. Bilirubin level is normalized. Cardiology is planning for catheterization tomorrow. Blood pressure is controlled. Patient is being continued on Coreg and lisinopril will be changed to losartan as per cardiology. Discussed with her daughter at bedside. Current medications reviewed. Active Medications Heparin Sodium (Porcine) (Heparin) 5,000 unit SQ Q12HR [facility] Last Admin: 05/21/19 21:08 Dose: 5,000 unit Documented by: Sodium Chloride (Saline 0.9%) 1,000 mls @ 100 mls/hr IV .Q10H [facility] Last Admin: 05/21/19 21:09 Dose: 100 mls/hr Documented by: Ceftriaxone Sodium 1 gm/ (Sodium Chloride) 50 mls @ 100 mls/hr IVPB Q24HR [facility] Last Admin: 05/21/19 08:15 Dose: 100 mls/hr Documented by: Metronidazole 500 mg/ IV (Solution) 100 mls @ 100 mls/hr IVPB Q8H [facility] Last Admin: 05/21/19 21:08 Dose: 100 mls/hr Documented by: Indomethacin (Indocin) 100 mg RECTAL ONCE ONE Stop: 05/22/19 11:01 Lisinopril (Zestril) 20 mg PO DAILY [facility] Last Admin: 05/21/19 08:13 Dose: 20 mg Documented by: Metoprolol Tartrate (Lopressor) 50 mg PO BID [facility] Last Admin: 05/21/19 21:08 Dose: 50 mg Documented by: Miscellaneous Information (Potassium Per Protocol) 1 each MISCELLANE DAILY PRN; Protocol PRN Reason: Per Protocol Naloxone HCl (Narcan) 0.2 mg IV Q2M PRN PRN Reason: Opioid Reversal Ondansetron HCl (Zofran) 4 mg IVP Q8HR PRN PRN Reason: Nausea And Vomiting Pantoprazole Sodium (Protonix) 40 mg IV DAILY [facility] Last Admin: 05/21/19 08:13 Dose: 40 mg Documented by: Objective - Vital Signs Vital signs: Vital Signs Temp 98.1 F 05/23/19 20:00 Pulse 78 05/23/19 22:38 Resp 18 05/23/19 22:38 BP 174/95 05/23/19 20:00 Pulse Ox 98 05/23/19 20:00 Intake & Output 05/23/19 05/23/19 05/24/19 06:59 18:59 06:59 Intake Total 1180 Balance 1180 Weight 80.2 kg Intake: IV 500 cefTRIAXone 1 gm In 400 Sodium Chloride 0.9% 50 ml @ 100 mls/hr IVPB Q24HR [facility] Rx#:[id number] metroNIDAZOLE-NS PMX 500 100 mg In Saline 1 100ml.bag @ 100 mls/hr IVPB Q8H [facility] Rx#:[id number] Oral 680 Other: Voiding Method Toilet Toilet Toilet # Voids 2 2 - Exam PHYSICAL EXAMINATION: Patient is lying in the bed comfortably, no acute distress, awake alert and oriented.. HEENT: Normocephalic. Neck is supple. Pupils reactive. Nostrils clear. Oral cavity is moist. Ears reveal no drainage. Neck reveals no JVD, carotid bruits, or thyromegaly. CHEST EXAMINATION: Trachea is central. Symmetrical expansion. Lung rios clear to auscultation and percussion. CARDIAC: Normal S1, S2 with no gallops. No murmurs ABDOMEN: Soft. Bowel sounds normal. No organomegaly. No abdominal bruits. Extremities: reveal no edema. No clubbing or cyanosis Neurologically awake, alert, oriented x3 with well-coordinated movements. No focal deficits noted Skin: No rash or skin lesions. Psychiatric: Coperative. Nonsuicidal Musculoskeletal: No joint swelling or deformity. Normal range of motion. - Labs CBC & Chem 7: 05/24/19 05:38 05/24/19 05:38 Labs: Abnormal Lab Results - Last 24 Hours (Table) 05/23/19 05/23/19 Range/Units 12:09 12:09 RBC 3.71 L (3.80-5.40) m/uL Hgb 10.9 L (11.4-16.0) gm/dL Chloride 114 H (98-107) mmol/L Glucose 107 H (74-99) mg/dL Microbiology - Last 24 Hours (Table) 05/20/19 13:24 Blood Culture - Preliminary Blood No Growth after 72 hours 05/20/19 04:33 Urine Culture - Final Urine,Clean Catch Assessment and Plan Assessment: Right flank pain. Patient was admitted to hospital right flank pain along with elevated liver enzymes and slightly elevated bilirubin level with biliary ductal dilatation in the CT. choledocholithiasis with possible cholangitis cannot be excluded. Sepsis secondary to above Hyperbilirubinemia Lactic acidosis. Improved now Possible UTI with abnormal urine sample. Low suspicion for infection. Follow- up urine culture report Elevated troponin level. Possible NSTEMI Elevated liver enzymes History of breast cancer status post left lumpectomy with lymph nodes. Currently on Aromasin. Hypertensive urgency History of cholecystectomy DVT prophylaxis with heparin subcu. Plan: Patient will be started on antibiotics in the form of ceftriaxone and Flagyl. Continue with IV hydration and follow-up lactic acid level. Follow-up urine culture and blood culture reports. Continue pain management. MRCP was done.. Patient was seen by neville contrerasnterologfernanda. Cardiology recommends catheterization. No prior history of CAD. Follow up closely and further recommendations based on the clinical course. Prognosis is guarded this time. Time with Patient: Greater than 30
--- NOTE | 2019-05-24 17:57 | PN ---
PROGRESS NOTE DATE OF SERVICE: May 24, 2019 Patient is a 79-year-old pleasant white female admitted to the hospital with severe right flank pain, noted to have elevated LFTs and jaundice. She also had leukocytosis, was started on broad-spectrum antibiotics and had an attempted ERCP for possible CBD stone that was noted on MRCP, ERCP as ampullary orifice could not be visualized because of a large periampullary diverticulum. In the meantime, her serum transaminases continued to improve. She has no further episodes of flank pain. She was also noted to have elevated troponin and underwent cardiac catheterization this morning by Dr. Mcnamara and no significant coronary artery disease noted. PHYSICAL EXAMINATION: Appears comfortable, no apparent distress. Vital signs are stable. Blood pressure 174/78, pulse rate 78, temperature 98. HEENT examination unremarkable. Conjunctivae pink. Sclerae anicteric. Oral cavity no lesions. Neck no JVD or lymph node enlargement. Chest was clear to auscultation. HEART: Regular rate and rhythm. ABDOMEN: Soft, benign. Bowel sounds are positive. No organomegaly. Extremities: No pedal edema. Skin no rashes. NEUROLOGIC: Alert and oriented x3. No focal deficits. LABS: WBC 7.4, hemoglobin 10.6, platelets normal. The AST and ALT are 32 and 72 respectively. Alkaline phosphatase is 142, T bilirubin is normalized at 0.8. IMPRESSION: 1. Right flank pain with evidence of biliary obstruction with elevated LFTs and jaundice as well as leukocytosis, possible ascending cholangitis. MRCP showed 2 small stones in the distal CBD. ERCP was attempted but unsuccessful because of nonvisualization of the ampullary orifice because of a large periampullary diverticulum. Presently, her serum transaminases have significantly improved the T bilirubin has completely normalized. Possibly she may have passed the stone spontaneously. Remains on broad-spectrum antibiotics and doing well. 2. Elevated troponin, status post cardiac catheterization today which revealed nonsignificant coronary artery disease. RECOMMENDATIONS: Continue with antibiotics. Advance diet as tolerated. Repeat LFTs tomorrow morning. If they are stable, she can be discharged home and she was advised to follow up with a local fuse coiler in [place] if she has recurrent symptoms. Thank you for this consultation. MMODL / IJN: [id number] /
--- NOTE | 2019-05-24 21:18 | P.PN ---
Subjective Progress Note Date: 05/24/19 Principal diagnosis: Biliary ductal dilation and hyperbilirubinemia Patient is 79-year-old female with a known history of hypertension, history of left breast cancer status post surgery and currently on Aromasin and previous history of cholecystectomy came to ER with complaints of right flank pain started since last night. Pain is mainly in the right flank no radiation. No a ggravating or relieving factors. Associated with some nausea. No episodes of vomiting. Patient did have chills at home. No fever noted when she came to the hospital. Otherwise denied any complains of chest pain or shortness of breath. Patient is visiting her daughter and has been in [place] for the past 1 week. Patient was found to have elevated liver enzymes and bilirubin level II.4 on admission. Patient was tachycardic. CT of the abdomen pelvis showed dilated biliary tree. Common bile dilated. This could relate to distal common bile stone or stricture. MRCP WAS RECOMMENDED. ULTRASOUND OF THE ABDOMEN SHOWED normal post cholecystectomy abdomen. EKG showed sinus tachycardia on admission. Patient was also found to have elevated troponin level 0.027 and 0.042. Denied any prior history of coronary artery disease. Lactic acid level was 2.4. Cardiology and gastroenterology was consulted. Patient was tachycardic and systolic blood pressures went up to 203 MM Hg today afternoon. 05/21/2019 Patient is currently lying in the bed comfortably. Denied any complaints of right flank pain today., Except one episode lasting about a minute this morning. Otherwise patient's bilirubin went up to 4. Levaquin is trending down. WBC 14.8. Patient was started on antibiotics in the form of ceftriaxone and Flagyl for possible cholangitis. Patient was febrile last night. Currently patient is afebrile. No complains of dysuria or hematuria. Troponin went up to 1.050. Cardiology recommends cardiac catheterization. Patient denied any complaints of chest pain or shortness of breath now. Gastroenterology is planning for ERCP likely tomorrow. Follow-up CBC and CMP and PT/INR tomorrow. 05/22/2019 Patient denied any complaints of abdominal pain or flank pain today. Patient was taken to ERCP today. 1. Large periampullary diverticulum 2. Unable to visualize the ampullary orifice/major papula despite multiple attempts 3. 1 cm proximal ulcer in the gastric body the stomach status post biopsies Otherwise bilirubin level came down to 1.5. Leukocytosis is improving. No complaints of chest pain or shortness of breath. Cardiology is planning for cardiac catheterization likely tomorrow. 05/23/2019 Patient denied any new complaints today. No chest pain or shortness of breath. Denied further right flank pain. Patient has been afebrile. Bilirubin level is normalized. Cardiology is planning for catheterization tomorrow. Blood pressure is controlled. Patient is being continued on Coreg and lisinopril will be changed to losartan as per cardiology. Discussed with her daughter at bedside. 05/24/2019 Patient denied any complaints of chest pain or shortness of breath. No flank pain. Liver enzymes much improved. Bilirubin was normalized. Patient underwent cardiac catheterization today. 1. Mild to moderate nonobstructive coronary artery disease 2. Stress-induced cardiomyopathy/broken heart syndrome Blood pressure is well controlled. Continued on Coreg and losartan and will change hydralazine to hydrochlorothiazide as per cardiology. Current medications reviewed. Active Medications Alprazolam (Xanax) 0.25 mg PO Q6HR PRN PRN Reason: Mild Anxiety Alprazolam (Xanax) 0.5 mg PO Q6HR PRN PRN Reason: Moderate Anxiety Carvedilol (Coreg) 12.5 mg PO BID-W/MEALS [facility] Last Admin: 05/24/19 15:51 Dose: 12.5 mg Documented by: Clonidine HCl (Catapres-Tts 0.2mg Patch) 1 patch TRANSDERM Q7D [facility] Last Admin: 05/22/19 15:29 Dose: 1 patch Documented by: Heparin Sodium (Porcine) (Heparin) 5,000 unit SQ Q12HR [facility] Last Admin: 05/24/19 20:35 Dose: 5,000 unit Documented by: Hydralazine HCl (Apresoline) 50 mg PO TID [facility] Last Admin: 05/24/19 15:51 Dose: 50 mg Documented by: Ceftriaxone Sodium 1 gm/ (Sodium Chloride) 50 mls @ 100 mls/hr IVPB Q24HR [facility] Last Admin: 05/24/19 09:18 Dose: 100 mls/hr Documented by: Losartan Potassium (Cozaar) 100 mg PO DAILY [facility] Last Admin: 05/24/19 12:00 Dose: 100 mg Documented by: Melatonin (Melatonin) 3 mg PO HS PRN PRN Reason: Insomnia Last Admin: 05/22/19 23:57 Dose: 3 mg Documented by: Metronidazole (Flagyl) 500 mg PO Q8HR [facility] Last Admin: 05/24/19 15:51 Dose: 500 mg Documented by: Miscellaneous Information (Potassium Per Protocol) 1 each MISCELLANE DAILY PRN; Protocol PRN Reason: Per Protocol Miscellaneous Information (Rx Info: Iv Contrast Was Given) 1 each MISCELLANE DAILY PRN PRN Reason: Per Protocol Stop: 05/26/19 14:21 Naloxone HCl (Narcan) 0.2 mg IV Q2M PRN PRN Reason: Opioid Reversal Nitroglycerin (Nitrostat) 0.4 mg SUBLINGUAL Q5M PRN PRN Reason: Chest Pain Ondansetron HCl (Zofran) 4 mg IVP Q8HR PRN PRN Reason: Nausea And Vomiting Pantoprazole Sodium (Protonix) 40 mg PO DAILY [facility] Last Admin: 05/24/19 09:18 Dose: 40 mg Documented by: Pravastatin Sodium (Pravachol) 10 mg PO DAILY [facility] Last Admin: 05/24/19 09:18 Dose: 10 mg Documented by: Objective - Vital Signs Vital signs: Vital Signs Temp 98.1 F 05/24/19 15:30 Pulse 78 05/24/19 16:15 Resp 16 05/24/19 16:15 BP 174/78 05/24/19 16:15 Pulse Ox 97 05/24/19 16:00 Intake & Output 05/23/19 05/24/19 05/24/19 18:59 06:59 18:59 Intake Total 1180 790 Balance 1180 790 Intake: IV 500 790 Sodium Chloride 0.9% 1, 640 000 ml In Empty Bag 1 bag @ 1 ML/KG/HR 80.2 mls/hr IV .[id number] ONE Rx#: [id number] cefTRIAXone 1 gm In 400 50 Sodium Chloride 0.9% 50 ml @ 100 mls/hr IVPB Q24HR [facility] Rx#:[id number] metroNIDAZOLE-NS PMX 500 100 mg In Saline 1 100ml.bag @ 100 mls/hr IVPB Q8H [facility] Rx#:[id number] Oral 680 Other: Voiding Method Toilet Toilet Toilet # Voids 1 2 - Exam PHYSICAL EXAMINATION: Patient is lying in the bed comfortably, no acute distress, awake alert and oriented.. HEENT: Normocephalic. Neck is supple. Pupils reactive. Nostrils clear. Oral cavity is moist. Ears reveal no drainage. Neck reveals no JVD, carotid bruits, or thyromegaly. CHEST EXAMINATION: Trachea is central. Symmetrical expansion. Lung rios clear to auscultation and percussion. CARDIAC: Normal S1, S2 with no gallops. No murmurs ABDOMEN: Soft. Bowel sounds normal. No organomegaly. No abdominal bruits. Extremities: reveal no edema. No clubbing or cyanosis Neurologically awake, alert, oriented x3 with well-coordinated movements. No focal deficits noted Skin: No rash or skin lesions. Psychiatric: Coperative. Nonsuicidal Musculoskeletal: No joint swelling or deformity. Normal range of motion. - Labs CBC & Chem 7: 05/24/19 05:38 05/24/19 05:38 Labs: Abnormal Lab Results - Last 24 Hours (Table) 05/24/19 05/24/19 Range/Units 05:38 05:38 RBC 3.61 L (3.80-5.40) m/uL Hgb 10.6 L (11.4-16.0) gm/dL Hct 33.0 L (34.0-46.0) % Chloride 111 H (98-107) mmol/L Calcium 8.2 L (8.4-10.2) mg/dL ALT 77 H (9-52) U/L Alkaline Phosphatase 142 H (38-126) U/L Total Protein 5.6 L (6.3-8.2) g/dL Albumin 2.9 L (3.5-5.0) g/dL Microbiology - Last 24 Hours (Table) 05/20/19 13:24 Blood Culture - Preliminary Blood No Growth after 96 hours Assessment and Plan Assessment: Right flank pain with elevated liver enzymes and slightly elevated bilirubin level with biliary ductal dilatation in the CT. choledocholithiasis with possible cholangitis cannot be excluded. Liver enzymes and bilirubin level is improving. Possible passed stone. Sepsis secondary to above Hyperbilirubinemia Lactic acidosis. Improved now Possible UTI with abnormal urine sample. Low suspicion for infection. Follow- up urine culture report Elevated troponin level. Possible NSTEMI Elevated liver enzymes History of breast cancer status post left lumpectomy with lymph nodes. Currently on Aromasin. Hypertensive urgency History of cholecystectomy DVT prophylaxis with heparin subcu. Plan: Patient will be started on antibiotics in the form of ceftriaxone and Flagyl. Patient is tolerating oral diet. Follow-up urine culture and blood culture negative so far. Continue pain management. MRCP was done.. Patient was seen by gas troenterology. ERCP was incomplete. Status post cardiac catheterization showed mild to moderate coronary artery disease. Medical management was recommended by cardiology. Follow up closely and further recommendations based on the clinical course. Prognosis is guarded this time. Time with Patient: Greater than 30
[2019-05-25] MEDS: CARVEDILOL 12.5 MG TAB PO SCH (06:50)
[2019-05-25] MEDS: metroNIDAZOLE 500 MG TAB PO SCH ×2 (09:23→15:24)
[2019-05-25] MEDS: PANTOPRAZOLE 40 MG TABLET PO SCH (09:25)
[2019-05-25] MEDS: PRAVASTATIN SODIUM 20 MG TAB PO SCH (09:25)
[2019-05-25] MEDS: hydrALAZINE HCL 50 MG TAB PO SCH ×2 (09:25→15:24)
[2019-05-25] MEDS: HEPARIN SODIUM,PORCINE 5,000 UNIT/ML 1 ML VIAL SQ SCH (09:27)
[2019-05-25] MEDS ORDERED: SPIRONOLACTONE 25 MG TAB PO SCH (09:30)
[2019-05-25 12:02] VITALS: PULSE 84; RESP 20
[2019-05-25 12:03] VITALS: BP 153/81; TEMP 97.8
[2019-05-25] MEDS: LOSARTAN 50 MG TAB PO SCH (12:05)
--- NOTE | 2019-05-25 17:43 | PN ---
PROGRESS NOTE DATE OF SERVICE: 05/25/2019 The patient is a 79 -year-old pleasant white female admitted to hospital with right flank pain and possible ascending cholangitis. She was noted to have leukocytosis and elevated bilirubin up to 4.1 and elevated LFTs. MRCP showed CBD stones. Attempted ERCP was unsuccessful as ampullary orifice could not be visualized and had a large periampullary diverticulum. In the meantime, her LFTs have significantly improved. She underwent cardiac catheterization yesterday for elevated troponin, which showed mild coronary artery disease and did not require any stent placement. The patient is doing much better today, wants to go home. PHYSICAL EXAMINATION: Appears comfortable. No apparent distress. Vital signs are stable. Blood pressure 150/81, pulse 84, temperature 97.8. HEENT examination unremarkable. Conjunctivae pink. Sclerae anicteric. Oral cavity no lesions. NECK: No JVD or lymph node enlargement. CHEST: Clear to auscultation. HEART: Regular rate and rhythm. ABDOMEN: Soft. Bowel sounds are positive. No organomegaly. EXTREMITIES: No pedal edema. SKIN no rashes. NEUROLOGIC: Alert and oriented x3. No focal deficits. LABS: From today not available. Yesterday, bilirubin is 0.8, AST and ALT are 77 and 142 respectively. IMPRESSION: 1. Elevated LFTs and jaundice with a bilirubin of 4.1 at the time of admission to the hospital, which has gradually improved. MRCP showed 2 small stones in the distal common bile duct. ERCP was attempted but unsuccessful because of nonvisualization of the ampulla. In the meantime, LFTs have significantly improved. The patient was on broad-spectrum antibiotics for possible ascending cholangitis, which has resolved. 2. Elevated troponin status post cardiac catheterization yesterday. No need for stent placement as she did not have any significant coronary artery disease. RECOMMENDATIONS: 1. Agree to discharge the patient home. 2. If she has recurrent right flank pain or right upper quadrant abdominal pain, she was advised to go to the emergency room right away. 3. She was advised to follow up with her local Nurse Leader at [facility]. 4. 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 Thank you for this consultation. MMODL / IJN: [id number] /
--- NOTE | 2019-05-25 18:07 | P.PN ---
Subjective This is Paula Dumont PA-C dictating a progress note on this patient The patient was interviewed and examined by me as well as by Dr. Prieto Case discussed with Dr. Prieto and he agrees with the plan of care IMPRESSION / ASSESSMENT: Abnormal troponins, likely secondary to stress cardiomyopathy Nonischemic cardiomyopathy, EF 40%, apical kinesis consistent with stress- induced cardiomyopathy Status post coronary angiogram showing mild to moderate nonobstructive coronary artery disease Biliary tree dilation, status post ERCP Hypertension, BP remains elevated History of breast cancer PLAN: Start spironolactone 25 mg daily Continue all other cardiac medications, continue beta roldan statins and aspirin Patient is clear for discharge from a cardiac standpoint with close follow-up HPI/interval history Patient is a 79-year-old female with a past medical history of hypertension and breast cancer who presented with complaints of abdominal pain and back pain. She was found to have abnormal liver enzymes and a dilated common bile duct and underwent ERCP but the major papilla could not be visualized. She also was found to have elevated troponins and her EKG showed T-wave inversions V3 through V6. Yesterday she underwent a coronary angiogram revealed right ostial lesion about 50%. She was also found to have an EF around 40% with anteroapical, apical inferior apical akinesia consistent with stress-induced cardiomyopathy. Patient seen and examined sitting in her chair. Denies any shortness of breath or chest pain. Denies any abdominal pain. Has been up walking around no dizziness. Her blood pressure remains elevated, denies headache, blurry vision. EXAMINATION Major 98.7F, pulse 84, blood pressure pressure 153/81, respirations 20, oxygen saturation 94% on room air Patient seen and examined sitting up in the chair, appears comfortable Lungs clear to auscultation bilaterally Heart is regular, no murmurs noted No elevated JVD No lower extremity edema REVIEW OF LABS, ECG WBC 7.4, hemoglobin 10.6, platelets 226, potassium 3.5, BUN 14, creatinine 0.73 Objective - Vital Signs Vital signs: Vital Signs Temp 97.8 F 05/25/19 12:02 Pulse 84 05/25/19 12:02 Resp 20 05/25/19 12:02 BP 153/81 05/25/19 12:02 Pulse Ox 94 L 05/25/19 12:02 Intake & Output 10/05/25/19 05/25/19 18:59 06:59 18:59 Intake Total 790 360 Balance 790 360 Weight 80.3 kg Intake: IV 790 Sodium Chloride 0.9% 1, 640 000 ml In Empty Bag 1 bag @ 1 ML/KG/HR 80.2 mls/hr IV .[id number] ONE Rx#: [id number] cefTRIAXone 1 gm In 50 Sodium Chloride 0.9% 50 ml @ 100 mls/hr IVPB Q24HR [facility] Rx#:[id number] Oral 360 Other: Voiding Method Bedpan Toilet Toilet # Voids 1 1 1 - Labs CBC & Chem 7: 05/24/19 05:38 05/24/19 05:38 Labs: Microbiology - Last 24 Hours (Table) 05/20/19 13:24 Blood Culture - Preliminary Blood No Growth after 120 hours
[2019-05-26] MEDS ORDERED: ASPIRIN 81 MG PO SCH (09:00)
--- NOTE | 2019-05-30 11:32 | CDI ---
Documentation Clarification Form Date: 05/30/19 From: Milena Styles Phone: If questions call Izzy Cesar @ [phone], Hours-8:30 am & 5 pm MKrys Byrd Admit Date: 05/21/2019 11:41:00 AM Patient Name: Yuki Freire Visit Number: [id number] Discharge Date: 05/25/2019 3:35:00 PM ATTENTION: The Clinical Documentation Specialists (CDI) and [facility] Coding Staff appreciate your assistance in clarifying documentation. Please respond to the clarification below the line at the bottom and electronically sign. The CDI & [facility] Coding staff will review the response and follow-up if needed. Please note: Queries are made part of the Legal Health Record. If you have any questions, please contact the author of this message via ITS. Dr. Tye Rivera The diagnosis Non-STEMI was documented in the H&P, 05/21 PN and 05/24 heart cath, but is not noted in subsequent documentation. .History/Risk Factors: Left breast cancer removed on Aromasin, HTN Clinical Indicators: Sepsis, bile duct obstruction, cholangitis, stress cardiomyopathy and nonischemic cardiomyopathy, mild nonobstructive CAD, hypertensive urgency Heart Cath results: Mild to moderate nonobstructive CAD. Stress-induced cardiomyopathy/broken heart syndrome. Final PN: Abnormal troponins, likely secondary to stress cardiomyopathy, nonischemic cardiomyopathy, EF 40%, apical kinesis consistent with stress- induced cardiomyopathy Treatment: Echo, left heart cath, added Spironolactone Please clarify if the non-STEMI was ruled in or if due to demand mismatch: Non-STEMI ruled in Non-STEMI ruled out Demand mismatch/Type II PA Other, please specify Clinically unable to determine Non-STEMI ruled out MTDD
--- NOTE | 2019-05-30 11:38 | CDI ---
Documentation Clarification Form Date: 05/30/19 From: Milena Styles Phone: If questions call Izzy Cesar @ [phone], Hours-8:30 am & 5 pm MKrys Byrd Admit Date: 05/21/2019 11:41:00 AM Patient Name: Yuki Freire Visit Number: [id number] Discharge Date: 05/25/2019 3:35:00 PM ATTENTION: The Clinical Documentation Specialists (CDI) and [facility] Coding Staff appreciate your assistance in clarifying documentation. Please respond to the clarification below the line at the bottom and electronically sign. The CDI & [facility] Coding staff will review the response and follow-up if needed. Please note: Queries are made part of the Legal Health Record. If you have any questions, please contact the author of this message via ITS. Dr. Tye Rivera Possible cholangitis is documented in the H&P and multiple PNs. Please specify the acuity of this condition with terms such as: Acute Chronic Acute and chronic Other (please specify in the medical record) Clinically unable to further specify Unknown Acute MTDD
--- NOTE | 2019-06-05 01:02 | P.DS ---
Providers Date of admission: 05/21/19 11:41 Expected date of discharge: 05/25/19 Attending physician: Fadumo Hyde Consults: 05/20/19 05:32 Consult Physician Routine Consulting Provider: Eunice Ordoñez Consult Reason/Comments: biliary tree dilitation Do you want consulting provider notified?: Yes 05/20/19 10:27 Consult Physician Routine Consulting Provider: Karissa Loya Consult Reason/Comments: elevated trop Do you want consulting provider notified?: Yes Primary care physician: Physician Nonstaff Hospital Course: Discharge diagnosis Right flank pain with elevated liver enzymes and slightly elevated bilirubin level with biliary ductal dilatation in the CT. choledocholithiasis with possible cholangitis cannot be excluded. Liver enzymes and bilirubin level is improving. Possible passed stone. Sepsis secondary to above Hyperbilirubinemia Lactic acidosis. Improved now Possible UTI with abnormal urine sample. Low suspicion for infection. Follow- up urine culture report Elevated troponin level. Possible stress-induced with sepsis. Nonischemic cardiomyopathy Elevated liver enzymes History of breast cancer status post left lumpectomy with lymph nodes. C urrently on Aromasin. Hypertensive urgency History of cholecystectomy DVT prophylaxis with heparin subcu. Hospital course Patient is 79-year-old female with a known history of hypertension, history of left breast cancer status post surgery and currently on Aromasin and previous history of cholecystectomy came to ER with complaints of right flank pain started since last night. Pain is mainly in the right flank no radiation. No aggravating or relieving factors. Associated with some nausea. No episodes of vomiting. Patient did have chills at home. No fever noted when she came to the hospital. Otherwise denied any complains of chest pain or shortness of breath. Patient is visiting her daughter and has been in [place] for the past 1 week. Patient was found to have elevated liver enzymes and bilirubin level II.4 on admission. Patient was tachycardic. CT of the abdomen pelvis showed dilated biliary tree. Common bile dilated. This could relate to distal common bile stone or stricture. MRCP WAS RECOMMENDED. ULTRASOUND OF THE ABDOMEN SHOWED normal post cholecystectomy abdomen. EKG showed sinus tachycardia on admission. Patient was also found to have elevated troponin level 0.027 and 0.042. Denied any prior history of coronary artery disease. Lactic acid level was 2.4. Cardiology and gastroenterology was consulted. Patient was tachycardic and systolic blood pressures went up to 203 MM Hg today afternoon. 05/21/2019 Patient is currently lying in the bed comfortably. Denied any complaints of right flank pain today., Except one episode lasting about a minute this mor marvin. Otherwise patient's bilirubin went up to 4. Levaquin is trending down. WBC 14.8. Patient was started on antibiotics in the form of ceftriaxone and Flagyl for possible cholangitis. Patient was febrile last night. Currently patient is afebrile. No complains of dysuria or hematuria. Troponin went up to 1.050. Cardiology recommends cardiac catheterization. Patient denied any complaints of chest pain or shortness of breath now. Gastroenterology is planning for ERCP likely tomorrow. Follow-up CBC and CMP and PT/INR tomorrow. 05/22/2019 Patient denied any complaints of abdominal pain or flank pain today. Patient was taken to ERCP today. 1. Large periampullary diverticulum 2. Unable to visualize the ampullary orifice/major papula despite multiple attempts 3. 1 cm proximal ulcer in the gastric body the stomach status post biopsies Otherwise bilirubin level came down to 1.5. Leukocytosis is improving. No complaints of chest pain or shortness of breath. Cardiology is planning for cardiac catheterization likely tomorrow. 05/23/2019 Patient denied any new complaints today. No chest pain or shortness of breath. Denied further right flank pain. Patient has been afebrile. Bilirubin level is normalized. Cardiology is planning for catheterization tomorrow. Blood pressure is controlled. Patient is being continued on Coreg and lisinopril will be changed to losartan as per cardiology. Discussed with her daughter at bedside. 05/24/2019 Patient denied any complaints of chest pain or shortness of breath. No flank pain. Liver enzymes much improved. Bilirubin was normalized. Patient underwent cardiac catheterization today. 1. Mild to moderate nonobstructive coronary artery disease 2. Stress-induced cardiomyopathy/broken heart syndrome Blood pressure is well controlled. Continued on Coreg and losartan and will change hydralazine to hydrochlorothiazide as per cardiology. 05/25/2019 Patient denied any new complaints today. Abdominal pain is much improved. No nausea vomiting. No headache or dizziness or lightheadedness. Blood pressure is well controlled. Otherwise. Cardiology and GI has cleared the patient for discharge. Patient is being discharged home today. PHYSICAL EXAMINATION: Patient is lying in the bed comfortably, no acute distress, awake alert and oriented.. HEENT: Normocephalic. Neck is supple. Pupils reactive. Nostrils clear. Oral cavity is moist. Ears reveal no drainage. Neck reveals no JVD, carotid bruits, or thyromegaly. CHEST EXAMINATION: Trachea is central. Symmetrical expansion. Lung rios clear to auscultation and percussion. CARDIAC: Normal S1, S2 with no gallops. No murmurs ABDOMEN: Soft. Bowel sounds normal. No organomegaly. No abdominal bruits. Extremities: reveal no edema. No clubbing or cyanosis Neurologically awake, alert, oriented x3 with well-coordinated movements. No focal deficits noted Skin: No rash or skin lesions. Psychiatric: Coperative. Nonsuicidal Musculoskeletal: No joint swelling or deformity. Normal range of motion. Vital Signs Temp 97.8 F 05/25/19 12:02 Pulse 84 05/25/19 12:02 Resp 20 05/25/19 12:02 BP 153/81 05/25/19 12:02 Pulse Ox 94 L 05/25/19 12:02 Intake & Output 05/24/19 05/25/19 05/25/19 18:59 06:59 18:59 Intake Total 790 360 Balance 790 360 Weight 80.3 kg Intake: IV 790 Sodium Chloride 0.9% 1, 640 000 ml In Empty Bag 1 bag @ 1 ML/KG/HR 80.2 mls/hr IV .[id number] ONE Rx#: [id number] cefTRIAXone 1 gm In 50 Sodium Chloride 0.9% 50 ml @ 100 mls/hr IVPB Q24HR [facility] Rx#:[id number] Oral 360 Other: Voiding Method Bedpan Toilet Toilet # Voids 1 1 1 Total time taken greater than 35 minutes including 18 minutes for counseling and coordination of care. Patient Condition at Discharge: Stable Plan - Discharge Summary Discharge Rx Participant: No New Discharge Prescriptions: New Spironolactone [Aldactone] 25 mg PO DAILY #30 tab Aspirin 81 mg PO DAILY #30 chew Carvedilol [Coreg*] 12.5 mg PO BID-W/MEALS #60 tab Losartan [Cozaar] 100 mg PO DAILY #30 tab metroNIDAZOLE [Flagyl] 500 mg PO Q8HR 3 Days #9 tab Levofloxacin [Levaquin] 500 mg PO DAILY 3 Days #3 tab Pravastatin Sodium [Pravachol] 10 mg PO DAILY #30 tab hydrALAZINE HCL [Apresoline] 50 mg PO TID #45 tab Continue Exemestane [Aromasin] 25 mg PO HS Discontinued Lisinopril [Prinivil] 20 mg PO DAILY Discharge Medication List Exemestane [Aromasin] 25 mg PO HS 05/20/19 [History] Aspirin 81 mg PO DAILY #30 chew 05/25/19 [Rx] Carvedilol [Coreg*] 12.5 mg PO BID-W/MEALS #60 tab 05/25/19 [Rx] Levofloxacin [Levaquin] 500 mg PO DAILY 3 Days #3 tab 05/25/19 [Rx] Losartan [Cozaar] 100 mg PO DAILY #30 tab 05/25/19 [Rx] Pravastatin Sodium [Pravachol] 10 mg PO DAILY #30 tab 05/25/19 [Rx] Spironolactone [Aldactone] 25 mg PO DAILY #30 tab 05/25/19 [Rx] hydrALAZINE HCL [Apresoline] 50 mg PO TID #45 tab 05/25/19 [Rx] metroNIDAZOLE [Flagyl] 500 mg PO Q8HR 3 Days #9 tab 05/25/19 [Rx] Follow up Appointment(s)/Referral(s): Basim Mcnamara MD [STAFF PHYSICIAN] - 06/06/19 3:15 pm Eunice Ordoñez MD [STAFF PHYSICIAN] - As Needed (Gastroenterology. Will follow up with physician in [place].) Renetta Stover MD [STAFF PHYSICIAN] - 3 Days (Primary physician in area if needed before you return home up [place].) Patient Instructions/Handouts: *Surgery [facility] - After Heart Catheterization - Lead Case Manager Instructions, Low Fat Diet (DC), Hypertension (DC) Activity/Diet/Wound Care/Special Instructions: Please check your blood pressure twice daily and bring to your follow up appointment with Dr. Mcnamara. Discharge Disposition: HOME SELF-CARE
== END 2019-05-25 15:35 | disposition home or self-care (01) | DRG 872 ==
LOC: EC 04:04 → 4MS4W 05:32 → 3SCARD 05-21 00:59 → OBSVTOIN 05-21 11:41
PROVIDERS: ADMIT Hospitalist; ATTEND Hospitalist
PROC: 0DB78ZX Excision of Stomach, Pylorus, Via Natural or Artificial Opening Endoscopic, Diagnostic (ICD-10-PCS; principal; 2019-05-22 07:30)
PROC: 4A023N7 Measurement of Cardiac Sampling and Pressure, Left Heart, Percutaneous Approach (ICD-10-PCS; 2019-05-24)
PROC: B2111ZZ Fluoroscopy of Multiple Coronary Arteries using Low Osmolar Contrast (ICD-10-PCS; 2019-05-24)
PROC: B2151ZZ Fluoroscopy of Left Heart using Low Osmolar Contrast (ICD-10-PCS; 2019-05-24)
DX: A41.9 Sepsis, unspecified organism (principal); E87.2 Acidosis; I51.81 Takotsubo syndrome; I42.8 Other cardiomyopathies; K80.32 Calculus of bile duct with acute cholangitis without obstruction; C50.912 Malignant neoplasm of unspecified site of left female breast; I16.0 Hypertensive urgency; I10 Essential (primary) hypertension; I25.10 Atherosclerotic heart disease of native coronary artery without angina pectoris; K31.4 Gastric diverticulum; K25.9 Gastric ulcer, unspecified as acute or chronic, without hemorrhage or perforation; F41.9 Anxiety disorder, unspecified; G47.00 Insomnia, unspecified; E66.9 Obesity, unspecified; Z68.28 Body mass index [BMI] 28.0-28.9, adult; Z79.811 Long term (current) use of aromatase inhibitors; Z79.899 Other long term (current) drug therapy; Z90.12 Acquired absence of left breast and nipple; Z87.442 Personal history of urinary calculi; Z90.49 Acquired absence of other specified parts of digestive tract; Z98.890 Other specified postprocedural states; Z98.42 Cataract extraction status, left eye; Z98.41 Cataract extraction status, right eye; Z96.1 Presence of intraocular lens; Z83.79 Family history of other diseases of the digestive system
CPT/HCPCS: 36415; 43239; 71045; 74177; 74181; 76705; 80048; 80053; 81001; 83605; 83690; 84484; 85025; 85610; 85730; 86850; 86900; 86901; 87040; 87086; 87502; 88305; 93005; 93306; 93458; 96361; 96374; 96375; 99285